=== PATIENT | male | born 1950 | race African-American/Black ===

== ENCOUNTER 2019-11-07 15:12 | Emergency (ER) | payer OTHER ==
--- OUTSIDE RECORDS SUMMARY | 2019-11-07 15:14 | XMS REPORT | Continuity of Care Document ---
:1950 Author Organization [facility] t Address [address] [place] [address] [place] [id number] Care Team Providers Name Role Phone Unavailable Unavailable Unavailable Problems This patient has no known problems. Allergies, Adverse Reactions, Alerts This patient has no known allergies or adverse reactions. Medications This patient has no known medications. Procedures This patient has no known procedures. Results This patient has no known results.
[2019-11-07 16:23] LABS: Absolute Lymphocytes (CBC) 1.8 K/uL (0.7-4.9); Basophils % 1.6 % (0-1.3); Hematocrit 38.1 % (39.6-49.0); Lymphocytes % 12.6 % (15.3-44.8); MPV 7.4 fL (7.6-11.3); RBC Red Blood Cell Count 4.39 M/uL (4.33-5.43)
--- NOTE | 2019-11-07 16:47 | RAD REPORT ---
EXAM DESCRIPTION: Cory Single View11/07/2019 4:25 pm CLINICAL HISTORY: cough COMPARISON: 2016 FINDINGS: Complete left atelectasis Right lung appears clear of acute infiltrate. Heart probably normal size IMPRESSION: Complete left atelectasis
[2019-11-07 16:59] LABS: Albumin 2.9 g/dL (3.4-5.0); Bilirubin Direct 0.3 mg/dL (0-0.2); Bilirubin Total 0.8 mg/dL (0.2-1.0); Potassium 4.1 mmol/L (3.5-5.1); Protein, Total 8.3 g/dL (6.4-8.2)
[2019-11-07 17:06] LABS: Blood Morphology Comment NOT SEEN (NOT SEEN); Platelet Estimate INCR; Platelets, Giant PRESENT; Urine White Blood Cell Casts OK
--- NOTE | 2019-11-07 18:05 | RAD REPORT ---
EXAM DESCRIPTION: CT - Chest Abdomen Pelvis W Cont - 11/07/2019 5:34 pm CLINICAL HISTORY: Chest and abdominal pain COMPARISON: CT abdomen 2017 TECHNIQUE: Computed axial tomography of the chest, abdomen and pelvis was obtained. 100 cc Isovue-30 0 was administered intravenously. Oral contrast was not requested. This limits evaluation of bowel. All CT scans are performed using dose optimization technique as appropriate and may include automated exposure control or mA/KV adjustment according to patient size. FINDINGS: 7.5 centimeter left parahilar mass obstructs the left mainstem bronchus resulting in atele ctasis. Small left pleural effusion. A small to moderate pericardial effusion. The right lung is hyperaerated. Mild mediastinal lymphadenopathy Multiple low-density hepatic lesions. The spleen, pancreas, adrenals unremarkable. Small left renal cyst. Moderate right hydronephrosis. Mild delay concentration contrast right kidney Right ureter is dilated to the level of the UVJ. Massive right inguinal hernia contains nondilated large and small bowel Murillo catheter is present within the prostate. Prostate gland is markedly enlarged. There is no evidence of diverticulitis. 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 It obstructs the left mainstem bronc hus resulting complete left atelectasis Small to moderate pericardial effusion Massive right inguinal hernia Right UVJ obstruction resulting in moderate right hydronephrosis perhaps secondary to a stricture Low-density hepatic mass. The majority if not all represent cysts Rectum is mildly distended with stool
--- NOTE | 2019-11-07 19:35 | ER ---
Nurse's Notes [facility] Name: Surya Penn Age: 69 yrs Sex: Male : 1950 Arrival Date: 11/07/2019 Time: 15:14 Bed 6 Private MD: Diagnosis: Inguinal hernia-massive right;Atelectasis-left lung hilar mass;Hemoptysis;Pericardial effusion (noninflammatory)-mild;Elevated white blood cell count Presentation: 11/06 15:16 Chief complaint: EMS states: pt from [facility], they state he has been coughing up blood x 2 tw2 weeks and have been trying to get him a CT scan, pt does have a contreras in place and pt is stating he has pain to the left lower abdomen. Coronavirus screen: Proceed with normal triage. Patient denies shortness of breath or difficulty breathing. Patient denies measured and/or subjective temperature greater than 100.4F prior to today's visit. Patient denies travel on a cruise ship or to a country the [facility] currently lists as an affected area. Ebola Screen: Patient denies travel to an Ebola-affected area in the 21 days before illness onset. Initial Sepsis Screen: Does the patient meet any 2 criteria? No. Patient's initial sepsis screen is negative. Does the patient have a suspected source of infection? No. Patient's initial sepsis screen is negative. Risk Assessment: Do you want to hurt yourself or someone else? Patient reports no desire to harm self or others. Onset of symptoms was November 07, 2019. Care prior to arrival: None. 15:16 Method Of Arrival: EMS: [facility] tw2 15:16 Acuity: MEGGAN 3 tw2 Triage Assessment: 15:22 General: Appears in no apparent distress. Behavior is calm, cooperative, appropriate tw2 for age. Pain: Complains of pain in left lower quadrant. EENT: No signs and/or symptoms were reported regarding the EENT system. Neuro: Level of Consciousness is awake, alert, obeys commands, Oriented to person, place. Cardiovascular: Heart tones S1 S2 Patient's skin is warm and dry. Respiratory: Airway is patent Respiratory effort is even, unlabored, Respiratory pattern is regular, symmetrical, Breath sounds are clear bilaterally. GI: Abdomen is Bowel sounds present X 4 quads. Reports lower abdominal pain. : Reports contreras in place upon arrival to er, cloudy yoly urine noted in collection bag. Derm: Skin is clammy, Skin temperature is warm. Musculoskeletal: Amputation of b/l BKA. Historical: - Allergies: 15:28 No Known Allergies; sv - Home Meds: 15:28 Aricept 10 mg Oral tab 1 tab nightly [Active]; aspirin 81 mg oral TbEC once daily sv [Active]; Colace 100 mg Oral cap 1 cap once daily [Active]; finasteride 5 mg oral tab 1 tab once daily [Active]; tamsulosin 0.4 mg Oral cp24 1 cap once daily [Active]; metoprolol tartrate 50 mg Oral tab 1 tab 2 times per day [Active]; Multiple Vitamins Oral tab daily [Active]; Namenda 10 mg oral tab 1 tab 2 times per day [Active]; omeprazole 20 mg Oral cpDR 1 cap once daily [Active]; Remeron 15 mg Oral tab 1 tab nightly [Active]; senna 8.6 mg oral cap once daily [Active]; Tessalon Perles 100 mg Oral cap 1 cap 3 times per day [Active]; - PMHx: 15:28 Anemia; Dementia; Depression; Hernia; Hypertension; PVD; Schizophrenia; UTI; BPH; ESBL; sv GERD; Acute kidney failure; Emmanuel BKA; Thrombocytopenia; Inguinal hernia; - PSHx: 15:28 BILATERAL BKA; sv - Immunization history:: Adult Immunizations. - Social history:: Smoking status: . Screenin:21 Abuse screen: Denies threats or abuse. Nutritional screening: No deficits noted. tw2 Tuberculosis screening: No symptoms or risk factors identified. Fall Risk None identified. Assessment: 15:31 Reassessment: see triage assessment. tw2 16:23 Reassessment: Patient appears in no apparent distress at this time. No changes from tw2 previously documented assessment. Patient and/or family updated on plan of care and expected duration. Pain level reassessed. 17:00 Reassessment: Hoa Amanda, ph#[phone] court appointed guardian. tw2 17:40 Reassessment: Patient appears in no apparent distress at this time. No changes from tw2 previously documented assessment. Patient and/or family updated on plan of care and expected duration. Pain level reassessed. pt back from CT at this time. 18:43 Reassessment: Patient appears in no apparent distress at this time. No changes from tw2 previously documented assessment. Patient and/or family updated on plan of care and expected duration. Pain level reassessed. 19:40 Reassessment:. rv 19:42 Reassessment: Patient and/or family updated on plan of care and expected duration. Pain rv level reassessed. Patient is alert, oriented x 3, equal unlabored respirations, skin warm/dry/pink. DR GONZALES TALKED TO THE PATIENT AND EXPLAINED THE TEST RESULTS AND PLAN OF CARE. PATIENT AGREED AND UNDERSTOOD. AWAITING ADMISSION ORDERS. 23:20 Reassessment: Patient and/or family updated on plan of care and expected duration. Pain rv level reassessed. Patient is alert, oriented x 3, equal unlabored respirations, skin warm/dry/pink. patient updated on the plan of care. report given to Doris Reveles RN of [facility]. Neuro: Level of Consciousness is awake, alert, obeys commands, Oriented to person, place, time, situation. Cardiovascular: Patient's skin is warm and dry. Respiratory: Airway is patent Respiratory effort is even, unlabored. 11/07 00:16 Reassessment: TALKED TO MS PETER OF [facility] AND UPDATED ON THE STATUS OF THE rv PATIENT. Vital Signs: 11/06 15:16 BP 147 / 78; Pulse 72; Resp 16; Temp 97.6(TE); Pulse Ox 95% on R/A; tw2 16:23 BP 139 / 86; Pulse 79; Resp 18; Pulse Ox 96% on R/A; tw2 17:40 BP 154 / 81; Pulse 77; Resp 18; Pulse Ox 95% on R/A; tw2 18:43 BP 141 / 79; Pulse 71; Resp 17; Pulse Ox 95% on R/A; tw2 19:41 BP 130 / 97; Pulse 73; Resp 18; Pulse Ox 95% on R/A; rv 20:00 BP 153 / 76; Pulse 71; Resp 16; Pulse Ox 96% on R/A; rv 20:30 BP 150 / 83; Pulse 70; Resp 16; Pulse Ox 96% on R/A; rv 21:03 BP 155 / 85; Pulse 73; Resp 17 S; Pulse Ox 95% on R/A; jd3 22:00 BP 143 / 101; Pulse 83; Resp 16; Pulse Ox 96% on R/A; rv 22:30 BP 124 / 90; Pulse 78; Resp 16; Pulse Ox 96% on R/A; rv 23:00 BP 139 / 80; Pulse 76; Resp 16; Pulse Ox 96% on R/A; rv 0603 00:12 BP 136 / 76; Pulse 78; Resp 17; Temp 98; Pulse Ox 96% on R/A; rv ED Course: 11/06 15:14 Patient arrived in ED. ss 15:16 Lizzy De Leon, RN is Primary Nurse. tw2 15:20 Triage completed. tw2 15:21 Arm band placed on. tw2 15:21 Patient has correct armband on for positive identification. Side rails up X2. Cardiac tw2 monitor on. Pulse ox on. NIBP on. Warm blanket given. 15:32 Harshad Gonzales MD is Attending Physician. [facility] 16:23 Inserted saline lock: 20 gauge in right antecubital area, using aseptic technique. tw2 Blood collected. 16:27 Chest Single View XRAY In Process Unspecified. EDMS 16:59 pts contact number (Wrjus) [phone]. bd 17:35 Chest Abdomen Pelvis W Cont In Process Unspecified. EDMS 19:02 Report given to Chris ZULETA and Mike ZULETA. sv 19:33 Hayley Osorio MD is Hospitalizing Provider. [facility] 22:02 Attending Physician role handed off by Harshad Gonzales MD [facility] 22:02 Tonio Boyd MD is Attending Physician. [facility] 11/07 00:13 No provider procedures requiring assistance completed. IV is patent, with fluids rv infusing freely, with good blood return, Patient transferred, IV remains in place. Administered Medications: 02 19:36 Drug: Rocephin - (cefTRIAXone) 1 grams Route: IVPB; Infused Over: 30 mins; Site: right rv antecubital; 20:34 Follow up: IV Status: Completed infusion rv 20:35 Follow up: Response: No adverse reaction rv 19:36 Drug: NS 0.9% 1000 ml Route: IV; Rate: 1000 ml; Site: right antecubital; rv 22:44 Follow up: IV Status: Completed infusion; IV Intake: 1000ml rv 22:20 Drug: Zosyn 3.375 grams Route: IVPB; Infused Over: 60 mins; Site: right antecubital; rv 23:20 Follow up: Response: No adverse reaction; IV Status: Completed infusion; IV Intake: rv 100ml Intake: 22:44 IV: 1000ml; Total: 1000ml. rv 23:20 IV: 100ml; Total: 1100ml. rv Outcome: 19:34 Decision to Hospitalize by Provider. [facility] 22:09 ER care complete, transfer ordered by . shahana 11/07 00:13 Transferred by ground EMS to [facility], Transfer form completed. rv X-rays sent w/ patient. Condition: good Instructed on the need for transfer, Demonstrated understanding of instructions. 00:13 Patient left the ED. rv Signatures: Dispatcher [employer] EDMS Irina Saunders Stephanie, RN Tonio Amador MD MD cha Smirch, Shelby, RN RN ss Wise, Tara, RN RN tw2 Chris Reagan RN RN jd3 Vicente, Ronaldo, RN RN rv Holmes, Maurice, MD MD [facility] Corrections: (The following items were deleted from the chart) 11/06 17:40 17:39 Reassessment: Patient appears in no apparent distress at this time. No changes tw2 from previously documented assessment. Patient and/or family updated on plan of care and expected duration. Pain level reassessed. tw2
--- NOTE | 2019-11-07 19:35 | EDPHYS ---
Physician Documentation [facility] Name: Surya Penn Age: 69 yrs Sex: Male : 1950 Arrival Date: 11/07/2019 Time: 15:14 Bed 6 Private MD: GONZALES Physician Tonio Boyd HPI: 11/06 16:44 This 69 yrs old Black Male presents to ER via EMS with complaints of Abnormal Lab mh7 Results. 16:45 The patient presents with abdominal pain in the lower abdomen. Onset: The mh7 symptoms/episode began/occurred 1 week(s) ago. The symptoms do not radiate. Associated signs and symptoms: Pertinent negatives: nausea and vomiting, anorexia, blood in stools, chest pain, constipation, diarrhea, dysuria, fever, headache, hematuria, nausea, palpitations, shortness of breath, testicular pain, vomiting, vomiting blood. The symptoms are described as intermittent, vague, waxing/waning. Modifying factors: The symptoms are alleviated by nothing, the symptoms are aggravated by nothing. Severity of pain: At its worst the pain was moderate 3 day(s) ago, in the emergency department the pain has improved mildly. Patient reports having left lower abdominal pain for about a week. He also reports cough with some blood for 2-3 weeks. He denies any fever, chest pain, SOB, nausea, vomiting, diarrhea, or dysuria.. Historical: - Allergies: 15:28 No Known Allergies; sv - Home Meds: 15:28 Aricept 10 mg Oral tab 1 tab nightly [Active]; aspirin 81 mg oral TbEC once daily sv [Active]; Colace 100 mg Oral cap 1 cap once daily [Active]; finasteride 5 mg oral tab 1 tab once daily [Active]; tamsulosin 0.4 mg Oral cp24 1 cap once daily [Active]; metoprolol tartrate 50 mg Oral tab 1 tab 2 times per day [Active]; Multiple Vitamins Oral tab daily [Active]; Namenda 10 mg oral tab 1 tab 2 times per day [Active]; omeprazole 20 mg Oral cpDR 1 cap once daily [Active]; Remeron 15 mg Oral tab 1 tab nightly [Active]; senna 8.6 mg oral cap once daily [Active]; Tessalon Perles 100 mg Oral cap 1 cap 3 times per day [Active]; - PMHx: 15:28 Anemia; Dementia; Depression; Hernia; Hypertension; PVD; Schizophrenia; UTI; BPH; ESBL; sv GERD; Acute kidney failure; Emmanuel BKA; Thrombocytopenia; Inguinal hernia; - PSHx: 15:28 BILATERAL BKA; sv - Immunization history:: Adult Immunizations. - Social history:: Smoking status: . ROS: 16:45 Constitutional: Negative for fever, chills, and weight loss, Eyes: Negative for injury, mh7 pain, redness, and discharge, ENT: Negative for injury, pain, and discharge, Neck: Negative for injury, pain, and swelling, Cardiovascular: Negative for chest pain, palpitations, and edema, Back: Negative for injury and pain, : Negative for injury, bleeding, discharge, and swelling, MS/Extremity: Negative for injury and deformity, Skin: Negative for injury, rash, and discoloration, Neuro: Negative for headache, weakness, numbness, tingling, and seizure, Psych: Negative for depression, anxiety, suicide ideation, homicidal ideation, and hallucinations, Allergy/Immunology: Negative for hives, rash, and allergies, Endocrine: Negative for neck swelling, polydipsia, polyuria, polyphagia, and marked weight changes, Hematologic/Lymphatic: Negative for swollen nodes, abnormal bleeding, and unusual bruising. Exam: 16:45 Constitutional: This is a well developed, well nourished patient who is awake, alert, mh7 and in no acute distress. Head/Face: Normocephalic, atraumatic. Eyes: Pupils equal round and reactive to light, extra-ocular motions intact. Lids and lashes normal. Conjunctiva and sclera are non-icteric and not injected. Cornea within normal limits. Periorbital areas with no swelling, redness, or edema. Neck: Trachea midline, no thyromegaly or masses palpated, and no cervical lymphadenopathy. Supple, full range of motion without nuchal rigidity, or vertebral point tenderness. No Meningismus. Chest/axilla: Normal chest wall appearance and motion. Nontender with no deformity. No lesions are appreciated. Cardiovascular: Regular rate and rhythm with a normal S1 and S2. No gallops, murmurs, or rubs. Normal PMI, no JVD. No pulse deficits. 16:45 Back: No spinal tenderness. No costovertebral tenderness. Full range of motion. Skin: Warm, dry with normal turgor. Normal color with no rashes, no lesions, and no evidence of cellulitis. 16:45 Neuro: Awake and alert, GCS 15, oriented to person, place, time, and situation. Cranial nerves II-XII grossly intact. Motor strength 5/5 in all extremities. Sensory grossly intact. Cerebellar exam normal. Normal gait. Psych: Awake, alert, with orientation to person, place and time. Behavior, mood, and affect are within normal limits. 16:45 Abdomen/GI: Inspection: abdomen appears normal, Bowel sounds: normal, in all quadrants, Palpation: moderate abdominal tenderness, in the left lower quadrant, Rectal exam: the exam is deferred, because of patient request, Indicators: McBurney's point is not tender, Diaz's sign is negative, Rovsing's sign is negative, Obturator sign is negative, Psoas sign is negative, Liver: no appreciated palpable abnormalities, Hernia: not appreciated. 16:45 Musculoskeletal/extremity: Extremities: bilateral AKA. Vital Signs: 15:16 BP 147 / 78; Pulse 72; Resp 16; Temp 97.6(TE); Pulse Ox 95% on R/A; tw2 16:23 BP 139 / 86; Pulse 79; Resp 18; Pulse Ox 96% on R/A; tw2 17:40 BP 154 / 81; Pulse 77; Resp 18; Pulse Ox 95% on R/A; tw2 18:43 BP 141 / 79; Pulse 71; Resp 17; Pulse Ox 95% on R/A; tw2 19:41 BP 130 / 97; Pulse 73; Resp 18; Pulse Ox 95% on R/A; rv 20:00 BP 153 / 76; Pulse 71; Resp 16; Pulse Ox 96% on R/A; rv 20:30 BP 150 / 83; Pulse 70; Resp 16; Pulse Ox 96% on R/A; rv 21:03 BP 155 / 85; Pulse 73; Resp 17 S; Pulse Ox 95% on R/A; jd3 22:00 BP 143 / 101; Pulse 83; Resp 16; Pulse Ox 96% on R/A; rv 22:30 BP 124 / 90; Pulse 78; Resp 16; Pulse Ox 96% on R/A; rv 23:00 BP 139 / 80; Pulse 76; Resp 16; Pulse Ox 96% on R/A; rv 11/07 00:12 BP 136 / 76; Pulse 78; Resp 17; Temp 98; Pulse Ox 96% on R/A; rv MDM: 11/06 16:01 Patient medically screened. [facility] 19:31 Differential diagnosis: bowel obstruction, diverticulitis, non-specific abd pain, mh7 Pyelonephritis, urinary tract infection, hemoptysis, lung mass/malignancy, pneumonia. Data reviewed: vital signs, nurses notes, fdc records, old medical records, lab test result(s), CBC, electrolytes, urinalysis, radiologic studies, CT scan, plain films. Data interpreted: monitor car operator: rate is 71 beats/min, rhythm is normal sinus rhythm, regular, Interpretation: normal rate, normal rhythm, Pulse oximetry: on room air is 95 %. Interpretation: normal. Counseling: I had a detailed discussion with the patient and/or guardian regarding: the historical points, exam findings, and any diagnostic results supporting the discharge/admit diagnosis, the presence of at least one elevated blood pressure reading (>120/80) during this emergency department visit, lab results, radiology results, the need for further work-up and treatment in the hospital. 11/06 15:55 Order name: Basic Metabolic Panel; Complete Time: 17:11 11/06 15:55 Order name: CBC with Diff; Complete Time: 17:11 11/06 15:55 Order name: Hepatic Function; Complete Time: 17:11 11/06 15:55 Order name: Lipase; Complete Time: 17:11 11/06 15:55 Order name: Chest Single View XRAY; Complete Time: 17:11 11/06 17:06 Order name: CBC Smear Scan; Complete Time: 17:11 EDAK 11/06 15:55 Order name: IV Saline Lock; Complete Time: 16:34 11/06 15:55 Order name: Labs collected and sent; Complete Time: 16:34 11/06 17:19 Order name: Chest Abdomen Pelvis W Cont; Complete Time: 18:51 EDAK 11/06 19:16 Order name: Urine Dipstick-Ancillary (obtain specimen); Complete Time: 19:44 [facility] 11/06 22:05 Order name: Murillo: replace; Complete Time: 22:15 shahana Administered Medications: 19:36 Drug: Rocephin - (cefTRIAXone) 1 grams Route: IVPB; Infused Over: 30 mins; Site: right rv antecubital; 20:34 Follow up: IV Status: Completed infusion rv 20:35 Follow up: Response: No adverse reaction rv 19:36 Drug: NS 0.9% 1000 ml Route: IV; Rate: 1000 ml; Site: right antecubital; rv 22:44 Follow up: IV Status: Completed infusion; IV Intake: 1000ml rv 22:20 Drug: Zosyn 3.375 grams Route: IVPB; Infused Over: 60 mins; Site: right antecubital; rv 23:20 Follow up: Response: No adverse reaction; IV Status: Completed infusion; IV Intake: rv 100ml Disposition: 11/07/19 22:[address] [facility]. Diagnosis are Inguinal hernia - massive right, Atelectasis - left lung hilar mass, Hemoptysis, Pericardial effusion (noninflammatory) - mild, Elevated white blood cell count. - Reason for transfer: Higher level of care. - Accepting physician is to [facility]... surgery, pulmonology and urology. - Condition is Fair. - Problem is new. - Symptoms have improved. Signatures: Dispatcher [employer] EDMS Alayna Zabala, Tonio Amador RN, MD MD cha Wise, Tara, RN RN 2 Mike Fernandez RN RN Harshad Gonzales MD MD 7 Corrections: (The following items were deleted from the chart) 17:19 17:13 Abdomen Pelvis W Con+CT.RAD.BRZ ordered. EDAK EDMS 17:19 17:16 Thorax W/ Con+CT.RAD.BRZ ordered. EDAK EDMS 21:59 19:34 Hospitalization Ordered by Hayley Osorio MD for Inpatient Admission. Preliminary tl1 diagnosis is Lung Mass; Urinary tract infection, site not specified; Dehydration. Bed requested for Telemetry/MedSurg (Inpatient). Status is Inpatient Admission. Condition is Stable. Problem is new. Symptoms are unchanged. mh7 11/07 00:13 11/06 22:09 11/07/2019 22:[address] [facility]. rv Diagnosis is Inguinal hernia - massive right; Atelectasis - left lung hilar mass; Hemoptysis; Pericardial effusion (noninflammatory) - mild; Elevated white blood cell count. Reason for transfer: Higher level of care. Accepting physician is to [facility]... surgery, pulmonology and urology. Condition is Fair. Problem is new. Symptoms have improved. shahana
[2019-11-07] MEDS ORDERED: CEFTRIAXONE/SWI 1gm 1 GM/10 ML SYR ONE (19:41)
[2019-11-07] MEDS ORDERED: NA CHLORIDE 0.9% 1,000 ML ONE (19:41)
[2019-11-07] MEDS ORDERED: PIPER/TAZO/NS 3.375gm 3.375 GM/100 ML BAG ONE (22:26)
[2019-11-08 00:30] VITALS: O2SAT 96
[2019-11-08 00:34] VITALS: BP 136/76; TEMP 98
--- NOTE | 2019-11-08 09:58 | P.CNS ---
Date of Consult: 11/07/19 Reason for Consult: Patient with lung mass Requesting Physician: Harshad Gonzales Chief Complaint: Hemoptysis History of Present Illness: Patient is a 61-year-old gentlemen who came to the hospital with hemoptysis. Patient also has numerous other medical issues. Patient had a large hernia with hydronephrosis. The surgical intervention for this as well. As a large lung mass that may need biopsy. Patient will need to be transferred to a tertiary care facility. Allergies No Known Allergies Allergy (Unverified 09/16/16 15:09) Home Medications: Aspirin [Aspirin EC 325 MG] 325 mg PO DAILY 01/31/16 Multivitamin [Daily Tony] 1 tab PO DAILY 01/31/16 Risperidone 1 mg PO BEDTIME 01/31/16 Metoprolol Tartrate 1 tab PO BID 09/09/16 Amoxicillin Trihydrate [Amoxil] 500 mg PO BID #28 capsule 09/16/16 Ferrous Sulfate [Ferrous Sulfate*] 325 mg PO BID #60 tab 09/16/16 Finasteride [Proscar*] 5 mg PO DAILY #30 tab 09/16/16 Pantoprazole [Protonix Tab*] 40 mg PO DAILYAC #30 tab 09/16/16 Tamsulosin [Flomax*] 0.4 mg PO BID #30 cap 09/16/16 - Past Medical/Surgical History Diabetic: No -: Depression -: Anemia -: Paranoid schizophrenia -: Hypertension -: Peripheral vascular disease -: Previous bilateral amputations -: Inguinal hernia -: Chronic Murillo catheter -: BPH -: Bilateral above knee amputations Psychosocial/ Personal History: Patient is currently at the [facility]. He is single. He has no children. - Family History Father Medical History: Kidney disease Mother Medical History: Hypertension Brother Medical History: Kidney disease - Social History Smoking Status: Former smoker Alcohol use: No CD- Drugs: No Caffeine use: Yes Review of Systems 10-point ROS is otherwise unremarkable Physical Examination Temp Pulse Resp BP Pulse Ox 98 F 78 17 136/76 11/08/19 00:12 11/08/19 00:12 11/08/19 00:12 11/08/19 00:12 General: Alert, In no apparent distress, Oriented x3 HEENT: Atraumatic, Normocephalic Neck: Supple, 2+ carotid pulse no bruit, JVD not distended, No Thyromegaly Respiratory: Diminished, Expiratory wheezes Cardiovascular: Regular rate/rhythm, Normal S1 S2, No murmurs Gastrointestinal: Normal bowel sounds, Soft and benign, Non-distended, No tenderness Musculoskeletal: No clubbing, No swelling, No contractures, No erythema Integumentary: No rashes Neurological: Normal gait, Normal speech, Normal strength at 5/5 x4 extr, Normal tone, Sensation intact, Cranial nerves 3-12 intact Laboratory Data (last 24 hrs) 11/07/19 16:15: WBC 14.6 H, Hgb 12.0 L, Hct 38.1 L, Plt Count 1176 H* 11/07/19 16:15: Sodium 143, Potassium 4.1, BUN 11, Creatinine 1.03, Glucose 90, Total Bilirubin 0.8, AST 15, ALT 12, Alkaline Phosphatase 94, Lipase 62 L - Problems (1) Lung mass Status: Acute (2) Hemoptysis Status: Acute (3) Hydronephrosis Status: Acute Qualifiers: Hydronephrosis type: other Qualified Code(s): N13.39 - Other hydronephrosis (4) Urinary retention Onset Date: 01/31/16 Status: Acute (5) Inguinal hernia Onset Date: 01/31/16 Status: Chronic Qualifiers: Obstruction and gangrene presence: without obstruction or gangrene Laterality: unilateral Recurrence: recurrent Qualified Code(s): K40.91 - Unilateral inguinal hernia, without obstruction or gangrene, recurrent (6) Paranoid schizophrenia Onset Date: 09/10/16 Status: Chronic Conclusions/ Impression: Patient has numerous medical issues going on. I recommend transfer to a tertiary care facility. Critical Care: No Time Spent Managing Pts care (In Minutes): 40
== END 2019-11-08 00:13 | disposition short-term general hospital (02) ==
LOC: ER 15:12
DX: K40.90 Unilateral inguinal hernia, without obstruction or gangrene, not specified as recurrent (principal); R04.2 Hemoptysis; J98.11 Atelectasis; I31.3 Pericardial effusion (noninflammatory); D72.829 Elevated white blood cell count, unspecified; I10 Essential (primary) hypertension; N17.9 Acute kidney failure, unspecified; Z79.82 Long term (current) use of aspirin
CPT/HCPCS: 96365; 96367; 96361; 85025; 80048; 36415; 80076; 83690; 71260; 74177; 71045; 99285; Q9967; J2543; J0696; J7030

== ENCOUNTER 2020-04-16 09:14 | Emergency (ER) | payer OTHER ==
[2020-04-16] MEDS ORDERED: NA CHLORIDE 0.9% 1,000 ML ONE (09:38)
--- OUTSIDE RECORDS SUMMARY | 2020-04-16 09:44 | XMS REPORT | Clinical Summary ---
:1950 Author Organization [facility] Address [address] [place] [address] Care Team Providers Name Role Phone Pcp, No Primary Care Provider Unavailable Allergies No Known Allergies Medications Medication Sig Dispensed Refills Start Date End Date Status docusate sodium Take 100 mg by 0 Active (COLACE) 100 MG mouth daily. capsule metoprolol tartrate Take 50 mg by 0 03/02/2016 Active (LOPRESSOR) 50 MG mouth 2 (two) tablet times daily. tamsulosin (FLOMAX) Take 0.4 mg by 0 Active 0.4 mg Cap 24 hr mouth daily. capsule donepeziL (ARICEPT) 10 Take 10 mg by 0 Active MG tablet mouth nightly. aspirin 81 MG EC Take 81 mg by 0 Active tablet mouth daily. finasteride (PROSCAR) Take 5 mg by 0 Active 5 mg tablet mouth daily. multivitamin per Take 1 tablet 0 Active tablet by mouth daily. memantine (NAMENDA) 10 Take 10 mg by 0 Active MG tablet mouth 2 (two) times daily. omeprazole (PRILOSEC) Take 20 mg by 0 Active 20 MG capsule mouth daily. mirtazapine (REMERON) Take 15 mg by 0 Active 15 MG tablet mouth nightly. senna (SENOKOT) 8.6 mg Take 1 tablet 0 Active tablet by mouth daily. benzonatate (TESSALON) Take 100 mg by 0 Active 100 MG capsule mouth 3 (three) times daily as needed for Cough. cefpodoxime (VANTIN) Take 1 tablet 20 tablet 0 11/11/201911/05 200 MG tablet (200 mg total) by mouth 2 (two) times daily for 10 days. Active Problems Problem Noted Date Lung mass 11/08/2019 Cough with hemoptysis 11/08/2019 Obstructive uropathy 11/08/2019 Encounters Date Type Specialty Care Team Description 11/10/2019 Anesthesia Event Jerry Vee MD Rembalski, Kindra Bhagat, HUMANITIES AND LANGUAGES PROFESSOR 11/10/2019 Surgery Rene Shields, BRONCHOSCOP Y,ENDOBRO MD DAVIS ULTRASOU ND (EBUS) TRANSTRA CH/ TRANSBRONCH TRACIE PLING 11/10/2019 Orders Only General Internal Medicine 11/08/2019 - Hospital Encounter General Internal Changechery, Lilia Cleopatra lucia with hemoptysis; 11/11/2019 Kaleb Causey MD Lung mass; Damari Phoenix, Chelsyuctmarta ve uropathy; Inguinal hernia without obstruction or g angrene, recurrence not specified, unspecified laterality; Nnacy Pascual Essential hypertension; MD Josefina Paranoid schi zophrenia (HCC) 11/08/2019 Travel after 04/16/2019 Social History Tobacco Use Types Packs/Day Years Used Date Former Smoker Smokeless Tobacco: Never Used Sex Assigned at Date Recorded Not on file Last Filed Vital Signs Vital Sign Reading Time Taken Comments Blood Pressure 101/66 11/11/2019 3:26 PM CDT Pulse 72 11/11/2019 3:26 PM CDT Temperature 36.8 C (98.2 F) 11/11/2019 3:26 PM CDT Respiratory Rate 22 11/11/2019 3:26 PM CDT Oxygen Saturation 99% 11/11/2019 3:26 PM CDT Inhaled Oxygen Concentration 21% 11/10/2019 12:20 PM CDT Weight - - Height 172.7 cm (5' 8") 11/08/2019 1:16 AM CDT Body Mass Index - - Plan of Treatment Health Maintenance Due Date Last Done Comments COLON CANCER SCREENING COLONOSCOPY 1950 PNEUMOCOCCAL 65+ YRS (1 of 1 - [id number]) 2016 MEDICARE ANNUAL WELLNESS (YEAR 2 or FIRST YEAR if no 10/06/2017 IPPE) INFLUENZA VACCINE (#1) 2020 Procedures Procedure Name Priority Date/Time Associated Diagnosis Comme nts REPORT OF PROCEDURE - 12/13/2019 ENDOSCOPY URL 10:17 AM CDT REPORT OF PROCEDURE - 11/14/2019 ENDOSCOPY SCAN 11:50 AM CDT TRANSFUSION SERVICE 11/11/2019 REPORT - SCAN 5:51 PM CDT TISSUE EXAM AP Routine 11/10/2019 Results for 7:26 PM CDT this procedure are in the results section. EBUS FNA REQUEST Routine 11/10/2019 Results for 6:58 PM CDT this procedure are in the results section. FINE NEEDLE ASPIRATE BY AP Routine 11/10/2019 Resu lts for EBUS 6:58 PM CDT this procedure are in the results section. EBUS FNA REQUEST Routine 11/10/2019 Results for 6:55 PM CDT this procedure are in the results section. FINE NEEDLE ASPIRATE BY AP Routine 11/10/2019 Resu lts for EBUS 6:55 PM CDT this procedure are in the results section. EBUS FNA REQUEST Routine 11/10/2019 Results for 6:50 PM CDT this procedure are in the results section. FINE NEEDLE ASPIRATE BY AP Routine 11/10/2019 Resu lts for EBUS 6:50 PM CDT this procedure are in the results section. EBUS FNA REQUEST Routine 11/10/2019 Results for 6:46 PM CDT this procedure are in the results section. FINE NEEDLE ASPIRATE BY AP Routine 11/10/2019 Resu lts for EBUS 6:46 PM CDT this procedure are in the results section. BRONCHOSCOPY,ASPIRATION 11/10/2019 Mediastinal TRACHEOBRONCHIAL TREE 6:07 PM CDT lymphadenopathy Special Needs (C-ARM AND REQ TF) BRONCHOSCOPY,DILATATION 11/10/2019 6:07 PM CDT Medias tinal lymphadenopathy Special Needs (C-ARM AND REQ TF) BRONCHOSCOPY,CRYOTHERAPY TREATMENT 11/10/2019 6:07 PM Mediastinal FOR STENOSIS CDT lymphadenopathy Special Needs (C-ARM AND REQ TF) BRONCHOSCOPY,ENDOBRONCHIAL 11/10/2019 6:07 PM Mediast inal ULTRASOUND (EBUS) TRANSTRACH/ CDT lymphadenop athy TRANSBRONCH SAMPLING Special Needs (C-ARM AND REQ TF) SARS-COV2/RT-PCR ([facility] & REF STAT 11/10/2019 4:13 PM CDT Results for this LABS) procedure are i n the results section . ECG 12-LEAD Routine 11/10/2019 1:43 PM CDT Procedure Note - Interface, External Ris In - 11/10/2019 2:10 PM CDT Ventricular Rate 64 BPM Atrial Rate 64 BPM P-R Interval 172 ms QRS Duration 132 ms Q-T Interval 430 ms QTC Calculation(Bazett) 443 ms P [place] 67 degrees R [place] -53 degrees T [place] -11 degrees Sinus rhythm with marked sin us arrhythmia Left axis deviation Left bundle branch block Abnormal ECG No previous ECGs available ECG 12-LEAD STAT 11/10/2019 1:43 PM CDT Resu lts for this procedure are i n the results section . ABORH, MANUAL STAT 11/10/2019 8:18 AM CDT Res ults for this procedure are i n the results section . CBC W/PLT COUNT & AUTO STAT 11/10/2019 5:11 AM CDT Results for this DIFFERENTIAL procedure are i n the results section . CBC W/PLT COUNT & AUTO Routine 11/10/2019 5:11 AM CDT Results for this DIFFERENTIAL procedure are i n the results section . TYPE AND SCREEN, AUTOMATED STAT 11/10/2019 5:11 AM CDT Results for this procedure are i n the results section . APTT STAT 11/10/2019 5:11 AM CDT Resu lts for this procedure are i n the results section . PROTHROMBIN TIME/INR STAT 11/10/2019 5:11 AM CDT Results for this procedure are i n the results section . CBC W/PLT COUNT & AUTO STAT 11/10/2019 5:11 AM CDT Results for this DIFFERENTIAL procedure are i n the results section . COMPREHENSIVE METABOLIC STAT 11/10/2019 5:11 AM CDT Results for this PANEL procedure are i n the results section . PROTHROMBIN TIME/INR Routine 11/10/2019 5:11 AM CDT Results for this procedure are i n the results section . CBC W/PLT COUNT & AUTO Routine 11/10/2019 5:11 AM CDT Results for this DIFFERENTIAL procedure are i n the results section . PHOSPHORUS Routine 11/10/2019 5:11 AM CDT Resu lts for this procedure are i n the results section . MAGNESIUM Routine 11/10/2019 5:11 AM CDT Resu lts for this procedure are i n the results section . HEPATIC FUNCTION PANEL Routine 11/10/2019 5:11 AM CDT Results for this procedure are i n the results section . BASIC METABOLIC PANEL (7) Routine 11/10/2019 5:11 AM CDT Results for this procedure are i n the results section . CBC W/PLT COUNT & AUTO Routine 11/09/2019 4:21 AM CDT Results for this DIFFERENTIAL procedure are i n the results section . PROTHROMBIN TIME/INR Routine 11/09/2019 4:21 AM CDT Results for this procedure are i n the results section . CBC W/PLT COUNT & AUTO Routine 11/09/2019 4:21 AM CDT Results for this DIFFERENTIAL procedure are i n the results section . PHOSPHORUS Routine 11/09/2019 4:21 AM CDT Resu lts for this procedure are i n the results section . MAGNESIUM Routine 11/09/2019 4:21 AM CDT Resu lts for this procedure are i n the results section . HEPATIC FUNCTION PANEL Routine 11/09/2019 4:21 AM CDT Results for this procedure are i n the results section . BASIC METABOLIC PANEL (7) Routine 11/09/2019 4:21 AM CDT Results for this procedure are i n the results section . US RENAL COMPLETE Routine 11/08/2019 7:25 AM CDT Results for this procedure are i n the results section . CBC W/PLT COUNT & AUTO Routine 11/08/2019 5:44 AM CDT Results for this DIFFERENTIAL procedure are i n the results section . PROTHROMBIN TIME/INR Routine 11/08/2019 5:44 AM CDT Results for this procedure are i n the results section . CBC W/PLT COUNT & AUTO Routine 11/08/2019 5:44 AM CDT Results for this DIFFERENTIAL procedure are i n the results section . PHOSPHORUS Routine 11/08/2019 5:44 AM CDT Resu lts for this procedure are i n the results section . MAGNESIUM Routine 11/08/2019 5:44 AM CDT Resu lts for this procedure are i n the results section . HEPATIC FUNCTION PANEL Routine 11/08/2019 5:44 AM CDT Results for this procedure are i n the results section . BASIC METABOLIC PANEL (7) Routine 11/08/2019 5:44 AM CDT Results for this procedure are i n the results section . URINALYSIS W/ REFLEX URINE Routine 11/08/2019 4:50 AM CDT Results for this CULTURE procedure are i n the results section . URINE CULTURE Routine 11/08/2019 4:50 AM CDT Res ults for this procedure are i n the results section . after 04/16/2019 Results REPORT OF PROCEDURE - ENDOSCOPY URL (12/13/2019 10:17 AM CDT) Narrative Performed At This result has an attachment that is no t available. EKG-SCANNED (11/14/2019 11:50 AM CDT) Narrative Performed At This result has an attachment that is no t available. TRANSFUSION SERVICE REPORT - SCAN (11/11/2019 5:51 PM CDT) Narrative Performed At This result has an attachment that is no t available. Tissue Exam (11/10/2019 7:26 PM CDT) Case Report Surgical Pathology Report Case: [id number] [facility] Authorizing Provider: Rene Villafana MD Collected: 11/10/2019 07:26 PM [facility] Ordering Location: [facility] PERIOPERATIVE Received: 11/13/2019 07:43 AM MEDICAL CENTER SERVICES Pathologist: Janette Mao MD Specimen: Bronchus, Lef t, EBBX, Reflex Genetic Markers DIAGNOSIS [facility] Electronically A. BRONCHUS, LEFT, ENDOBRONCHIAL BIOPSY: [facility] signed by Daylin, - SQUAMOUS CELL CARCINOMA, MODERATELY DIFFERENTIAT ED. [facility] MD Janette on Signing Pathologist Direct Phone Line: [phone] 11/14/2019 at 9:47 AM CPT Code(s) 92571 [facility] CLINICAL HISTORY Perihilar mass [facility] SPECIMEN SOURCE Bronchus, left [facility] GROSS DESCRIPTION A. Received in formalin labe lled with the patients name, medical record number and "bronchus, left" is a 1.1 x 0.6 x 0.2 cm irregular ayala-pink soft tissue fragment which is submitted in toto in A1. [facility] DAVON Lawrence PA (ASCP) MEDICAL [address] MICROSCOPIC Performed. [facility] SPECIAL STUDIES The interpretation of this c ase included the use of immunohistochemistry or special stains. [facility] Control Slides Examined: In -house known positive controls were evaluated along with the test tissue. These control slides run alongside of the patients sample show appropriate staining. [facility] javad and negative controls when available are evaluated Immunohistochemistry technic al testing was performed at [facility], Pathology Laboratory where it was developed and its performance characteristics were determined. It has not be en cleared or approved by [facility] U.S. Food and Drug Administration. The FDA has determined that such clearance or approval is not necessary. The test is used for clinical purposes. It should not be regarde d as investigational or for research. This laboratory is certified under the Clinical Laboratory Improvement Amendments of 1988 (CLIA-88) as qualified to perform high complexity clinical laboratory testing. Gross assessment [facility] was performed at [facility] Pathology, [address] [place] [id number], Technical [facility] component was [facility] performed at Pathology, [address] [place] [id number], [facility] component was [facility] performed at [facility], [address] [place] [id number], Specimen Tissue - Left main bronchus structure (b beverley structure) Performing Organization Address [facility]/[place] [facility] Centercode Phone Number [address] [phone] [place] EBUS FNA REQUEST (11/10/2019 6:58 PM CDT)Only the most recent of4 resultswithin the time period is included. Pathologist Sig nature Cytology See Separate Report [facility] Specimen EBUS Fine Needle Aspirate - Lymph Node, Lower Paratracheal, Left, Station 4L Performing Organization Address [facility] [place] [facility] Centercoct Phone Number [address] [address] [place] Fine Needle Aspiration by EBUS (11/10/2019 6:58 PM CDT)Only the most recent of4 resultswithin the time period is included. Case Report Medical Cytology Report Case: [id number] [facility] Authorizing Provider: Rene Villafana MD Collected: 11/10/2019 06:58 PM [facility] Ordering Location: [address] Received: 11/13/2019 09:26 AM MEDICAL CENTER Service Pathologist: Amy Pineda MD Specimen: Lymph Node, L ower Paratracheal, Left, Station 4L DIAGNOSIS LYMPH NODE, LOWER PARATRACHE AL, LEFT, STATION 4L EBUS FNA BY CLINICIAN (CYTOSPINS AND CELL BLOCK OF ASPIRATE): [facility] Electronically - SATISFACTORY FOR EVALUATION [facility] signed by Miriam, - NEGATIVE FOR METASTATIC MALIGNANT CELLS [facility] MD Amy on - EVIDENCE OF LYMPH NODE SAMPLING (POLYMORPHOUS LYM PHOID TISSUE PRESENT) 11/14/2019 at 11:48 Signing Pathologist Direct Phone Line: [phone] COMMENT Please see cases [id number] [facility] and [id number] through [address] [facility] CPT Code(s) 95627, [address]458 [facility] CLINICAL DATA Mediastinal [facility] lymphadenopathy [facility] SPECIMEN SOURCE LYMPH NODE, LOWER [facility] PARATRACHEAL, LEFT, [facility] STATION 4L EBUS FNA [facility] GROSS DESCRIPTION 34 mls in cytorich red; [address] cytospins, cell bloc k [facility] Collected: [facility] Received: [address] [place] [address] MICROSCOPIC Performed. [facility] SPECIAL [facility] The interpretation of this c ase included the use of immunohistochemistry or special stains. [facility] Control Slides Examined: In -house known positive controls were evaluated along with the test tissue. These control slides run alongside of the patients sample show appropriate staining. [facility] javad and negative controls when available are evaluated Immunohistochemistry technic al testing was performed at [facility], Pathology Laboratory where it was developed and its performance characteristics were determined. It has not be en cleared or approved by [facility] U.S. Food and Drug Administration. The FDA has determined that such clearance or approval is not necessary. The test is used for clinical purposes. It should not be regarde d as investigational or for research. This laboratory is certified under the Clinical Laboratory Improvement Amendments of 1988 (CLIA-88) as qualified to perform high complexity clinical laboratory testing. Gross assessment [facility] was performed at [place], Department of [facility] Pathology, [address] [place] [address], [place] [address], Technical [facility] component was [facility] B[facility] performed at Pathology, [address] [place] [address], [place] [address], [facility] component was [facility] performed at Pathology, [address] [place] [id number], Specimen EBUS Fine Needle Aspirate - Lymph Node, Lower Paratracheal, Left, Station 4L Narrative Performed At This result has an attachment that is no t available. Performing Organization Address City/State/Zipcode Phone Number [address] [phone] CENTER SARS-CoV2/RT-PCR (Symptomatic ONLY) (11/10/2019 4:13 PM CDT) SARS-COV2/RT-PCR Not Detected Not Detected, [facility] Negative [facility] SARS-COV-[address] [facility] PERFORMING LAB [facility] Specimen Other - Nasopharyngeal wall structure (b beverley structure) Narrative Performed At Negative results do not preclude SARS-CoV-2 [facility] infection and should not be used as the sole basis for patient management decisions. Negative results must be combined with clinical observations, patient history, and epidemiological information. A false negative result may occur if a specimen is improperly collected, transported or handled. The limit of detection for this assay is 250 copies/mL. This SARS CoV-2 test is a rapid, real-time RT-PCR test intended for the qualitative detection of nucleic acid from SARS-CoV-2 in a nasopharyngeal swab specimen collected from individuals suspected of COVID-19 by their healthcare provider. This test has not been Food and Drug Administration (FDA) cleared or approved and has been authorized by FDA under an Emergency Use Authorization (EUA). This EUA will be effective until the declaration that circumstances exist justifying the authorization of the emergency use of in vitro diagnostic tests for detection and/or diagnosis of COVID-19 is terminated under Section 564(b)(2) of the Act or the EUA is revoked under Section 564(g) of the Act. Fact Sheet for Healthcare Providers: https://www.[employer]/Documents/Xpert%20Xpre ss%20SARS%20CoV-2/Fact%20Sheets/302-3802%20SAR S-COV-2%20HEALTHCARE%20PROVIDERS%20FACT%20SHEE T.pdf Fact Sheet for Healthcare Patients: https://www.[employer]/Documents/Xpert%20Xpre ss%20SARS%20CoV-2/Fact%20Sheets/302-3801%20SAR S-COV-2%20PATIENT%20FACT%20SHEET.pdf Performing Laboratory: [address] [address] Performing Organization Address [facility]/[place] [facility] [place] [address] CENTER ECG 12 lead (11/10/2019 1:43 PM CDT) Specimen Narrative Performed At Ventricular Rate 64 BPM GE MUSE Atrial Rate 64 BPM P-R Interval 172 ms QRS Duration 132 ms Q-T Interval 430 ms QTC Calculation(Bazett) 443 ms P [place] 67 degrees R [place] -53 degrees T [place] -11 degrees Sinus rhythm with marked sinus arrhythmi a Left axis deviation Left bundle branch block Abnormal ECG No previous ECGs available Confirmed by MD MARY, JERMAN ([id number]) on 11/11/2019 7 :01:02 AM Procedure Note Interface, External Ris In - 11/11/2019 7:01 AM CDT Ventricular Rate 64 BPM Atrial Rate 64 BPM P-R Interval 172 ms QRS Duration 132 ms Q-T Interval 430 ms QTC Calculation(Bazett) 443 ms P [place] 67 degrees R [place] -53 degrees T [place] -11 degrees Sinus rhythm with marked sinus arrhythmi a Left axis deviation Left bundle branch block Abnormal ECG No previous ECGs available Confirmed by MD HERNANDEZ YOCHAI ([id number]) on 11/11/2019 7:01:02 AM Performing Organization Address City/[facility] [place] [facility] Centercoct Phone Number [employer] MUSE ABORH, manual (11/10/2019 8:18 AM CDT) Pathologist Sig nature ABO Grouping O [facility] Rh Factor POS [facility] [place] Specimen Blood Performing Organization Address City/State/Zipcode Phone Number [facility] [address] [place] [address] Type and screen, automated (11/10/2019 5:11 AM CDT) Pathologist Sig nature ABO/RH AUTOMATED O POSITIVE [facility] Ab Scrn NEGATIVE [facility] Specimen Blood Performing Organization Address City/State/Zipcode Phone Number [facility] [address] [place] [address] CBC with platelet count + automated diff (11/10/2019 5:11 AM CDT)Only the most recent of4 resultswithin the time period is included. Pathologist Sig nature WBC 13.9 (H) 3.5 - 10.5 [facility] K/L [facility] RBC 4.03 (L) 4.63 - 6.08 [facility] M/L [facility] Hemoglobin 11.0 (L) 13.7 - 17.5 [facility] GM/DL [facility] Hematocrit 37.3 (L) 40.1 - 51.0 % [facility] MCV 92.6 (H) 79.0 - 92.2 fL [facility] MCH 27.3 25.7 - 32.2 pg [facility] MCHC 29.5 (L) 32.3 - 36.5 [facility] GM/DL [facility] RDW 14.8 (H) 11.6 - 14.4 % [facility] Platelets 1,021 (H) 150 - 450 K/CU [facility] MM [facility] MPV 9.1 (L) 9.4 - 12.4 fL [facility] nRBC 0 0 - 0 /100 WBC [facility] % Neutros 78 % [facility] % Lymphs 11 % [facility] % Monos 6 % [facility] % Eos 3 % [facility] % Baso 1 % [facility] # Neutros 10.92 (H) 1.78 - 5.38 [facility] # Lymphs 1.46 1.32 - 3.57 [facility] # Monos 0.88 (H) 0.30 - 0.82 [facility] # Eos 0.46 0.04 - 0.54 [facility] # Baso 0.12 (H) 0.01 - 0.08 [facility] Immature 1 0 - 1 % [facility] Granulocytes-Relativ [facility] e [place] Specimen Blood Performing Organization Address City/State/Zipcode Phone Number [address] [address] [place] aPTT (11/10/2019 5:11 AM CDT) Pathologist Sig nature PTT 47.6 (H) 22.5 - 36.0 seconds [facility] Specimen Blood Performing Organization Address City/State/Zipcode Phone Number [address] [address] [place] Prothrombin time/INR (11/10/2019 5:11 AM CDT)Only the most recent of4 results within the time period is included. Pathologist Sig nature Protime 15.9 (H) 11.9 - 14.2 seconds [facility] INR 1.3 <=5.9 [facility] Specimen Blood Narrative Performed At Effective 11/02/2018: PT Reference Range [facility] Change New: 11.9-14.2 Previous: 11.7-14.7 RECOMMENDED COUMADIN/WARFARIN INR THERAPY RANGES STANDARD DOSE: 2.0-3.0 Includes: PROPHYLAXIS for venous thrombosis, systemic embolization; TREATMENT for venous thrombosis and/or pulmonary embolus. HIGH RISK: Target INR is 2.5-3.5 for patients wiht mechanical heart valves. Performing Organization Address [facility] [place] [facility] Center[facility] Phone Number [address] [address] CENTER Phosphorus (11/10/2019 5:11 AM CDT)Only the most recent of3 resultswithin the time period is included. Pathologist Sig nature Phosphorus 3.0 2.3 - 4.7 mg/dL [facility] Specimen Blood Narrative Performed At Reinforcing Bar Setter ID - [facility] Performing Organization Address [facility] Phone Number [address] [address] CENTER Magnesium (11/10/2019 5:11 AM CDT)Only the most recent of3 resultswithin the time period is included. Pathologist Sig nature Magnesium 1.5 (L) 1.6 - 2.6 mg/dL [facility] Specimen Blood Narrative Performed At [employer]forcing [employer] Setter ID - [facility] Performing Organization Address [facility] [place] Phone Number [address] [address] [place] Hepatic function panel (11/10/2019 5:11 AM CDT)Only the most recent of3 results within the time period is included. Pathologist Sig nature Protein, Total 7.0 6.0 - 8.3 gm/dL [facility] Albumin 3.0 (L) 3.5 - 5.0 g/dL [facility] Total Bilirubin 1.3 (H) 0.2 - 1.2 mg/dL [facility] Bilirubin, Direct 0.7 (H) 0.1 - 0.5 mg/dL [facility] Alkaline Phosphatase 70 40 - 150 U/L [facility] AST 13 5 - 34 U/L [facility] ALT <6 (L) 6 - 55 U/L [facility] Specimen Blood Narrative Performed At Reinforcing Bar Setter ID - PIAYA L [facility] Performing Organization Address City/State/Zipcode Phone Number [facility] [address] [place] [address] CENTER Comprehensive metabolic panel (11/10/2019 5:11 AM CDT) Protein, Total 7.0 6.0 - 8.3 [facility] gm/dL [facility] Albumin 3.0 (L) 3.5 - 5.0 [facility] g/dL [facility] Alkaline 70 40 - 150 U/L [facility] Phosphatase [facility] Total Bilirubin 1.3 (H) 0.2 - 1.2 [facility] mg/dL [facility] Sodium 141 136 - 145 [facility] meq/L [facility] Potassium 3.9 3.5 - 5.1 [facility] meq/L [facility] Chloride 105 98 - 107 [facility] meq/L [facility] CO2 26 22 - 29 meq/L [facility] BUN 8 7 - 21 mg/dL [facility] Creatinine 0.90 0.57 - 1.25 [facility] mg/dL [facility] Glucose 79 70 - 105 [facility] mg/dL [facility] Calcium 8.5 8.4 - 10.2 [facility] mg/dL [facility] AST 13 5 - 34 U/L [facility] ALT <6 (L) 6 - 55 U/L [facility] EGFR 102Comment: mL/min/1.73 [facility] ESTIMATED GFR IS sq m [facility] BCM NOT ACCURATE MEDICAL CENTER CREATININE CLEARANCE IN PREDICTING GLOMERULAR FILTRATION RATE. ESTIMATED GFR IS NOT APPLICABLE FOR DIALYSIS PATIENTS. Specimen Blood Narrative Performed At Reinforcing Bar Setter ID - PIELSY Gutierrez [facility] CENTER Performing Organization Address City/[facility]/Zipcode Phone Number [facility] [address] [place] [address] CENTER Basic metabolic panel (11/10/2019 5:11 AM CDT)Only the most recent of3 results within the time period is included. Sodium 141 136 - 145 meq/L [facility] Potassium 3.9 3.5 - 5.1 meq/L [facility] Chloride 105 98 - 107 meq/L [facility] CO2 26 22 - 29 meq/L [facility] BUN 8 7 - 21 mg/dL [facility] Creatinine 0.90 0.57 - 1.25 [facility] mg/dL [facility] Glucose 79 70 - 105 mg/dL [facility] Calcium 8.5 8.4 - 10.2 [facility] mg/dL [facility] EGFR 102Comment: mL/min/1.73 [facility] ESTIMATED GFR IS [facility] MEDICAL ACCURATE CENTER CREATININE CLEARANCE IN PREDICTING GLOMERULAR FILTRATION RATE. ESTIMATED GFR IS NOT APPLICABLE FOR DIALYSIS PATIENTS. Specimen Blood Performing Organization Address City/[facility]/Zipcode Phone Number [facility] [address] [place] [address] CENTER US renal complete (11/08/2019 7:25 AM CDT) Specimen Narrative Performed At FINAL REPORT [employer] Technique: Grayscale and color doppler r enal ultrasound was performed on 11/08/2019 Clinical History: Sylvester. Comparison Study: None. Findings: The right kidney measures 10.3 x 4.4 x 4.8 cm and left kidney measures 10.0 x 5.4 x 4.8 cm. The re is mild right hydroureteronephrosis. There is no evidence of nephrolithiasis or renal mass on either side. The echogenicity is normal bilaterally. Color flow is documented to both kidneys . The bladder is decompressed by Murillo cat heter. Impression: Mild right hydroureteronephr osis. Signed: Krystal Wan MD Report Verified Date/Time: 11/08/2019 11:08:21 Reading Location: [address] Radiolog y Reading Room Procedure Note Interface, External Ris In - 11/08/2019 11:10 AM CDT FINAL REPORT Technique: Grayscale and color doppler r enal ultrasound was performed on 11/08/2019 Clinical History: Sylvester. Comparison Study: None. Findings: The right kidney measures 10.3 x 4.4 x 4.8 cm and left kidney measures 10.0 x 5.4 x 4.8 cm. The re is mild right hydroureteronephrosis. There is no evidence of nephrolithiasis or renal mass on either side. The echogenicity is normal bilaterally. Color flow is documented to both kidneys . The bladder is decompressed by Murillo cat heter. Impression: Mild right hydroureteronephr osis. Signed: Krystal Wan MD Report Verified Date/Time: 11/08/2019 1 1:08:21 Reading Location: [address] Radiolog y Reading Room Performing Organization Address City/State/Zipcode Phone Number [facility] Urinalysis w/Microscopic + Reflex to Culture (11/08/2019 4:50 AM CDT) Color, UA Yellow [facility] Clarity, UA Cloudy [facility] Specific [place], 1.026 1.001 - 1.035 [facility] pH, UA 6.0 5.0 - 8.0 [facility] Protein, UA 30 mg/dL (A) Negative [facility] Glucose, UA Negative Negative [facility] Ketones, UA 60 mg/dL (A) Negative [facility] Bilirubin, UA Negative Negative [facility] Blood, UA Small (A) Negative [facility] Nitrite, UA Negative Negative [facility] Leukocytes, UA Large (A) Negative [facility] Urobilinogen, UA 2.0 (H) 0.2 - 1.0 mg/dL [facility] RBC, UA 12 /HPF [facility] WBC, UA 1,751Comment: /HPF [facility] Wbc clumps seen [facility] Bacteria, UA Many [facility] Specimen Source [facility] Specimen Urine Narrative Performed At Reinforcing Bar Setter ID - [auto] [facility] Reinforcing Bar Setter ID - tech Performing Organization Address City/[facility] Phone Number [facility] [address] [place] [address] CENTER Urine culture (11/08/2019 4:50 AM CDT) Pathologist Sig nature Result See comment [facility] Specimen Urine - Urine (substance) Narrative Performed At <10,000 col/mL Gram negative belle. [facility] Performing Organization Address City/[facility] Centercode Phone Number [facility] [address] [place] [address] CENTER after 04/16/2019 Insurance Payer Benefit Plan / Subscriber ID Effective Phone Address T ype Group Dates MEDICARE MEDICARE A B [id number] 2016-Prese Medicare nt MEDICAID - MEDICAID [id number] 2016-Prese Medi caid MEDICAID MGD [employer] nt Non-Co ntract CARE ed CDC REVIEW CDC REVIEW [id number] 2019-[place] [place] [address] MEDICAID MEDICAID OF [id number] Effective for [facility] [place] all dates Advance Directives For more information, please contact: [phone] Code Status Date Activated Date Inactivated Comments Full Code 11/08/2019 3:53 AM 11/11/2019 9:24 PM This code status was determined by: Patient
--- OUTSIDE RECORDS SUMMARY | 2020-04-16 09:46 | XMS REPORT | Continuity of Care Document ---
:1950 Author Organization [facility] t Address [address] [place] [address] [place] [address] Care Team Providers Name Role Phone Pcp, No Primary Care Physician Unavailable Alyson PATEL, Rene Mckeon Attending Clinician Marium WHITE Attending Clinician Unavailable Marium White MD Attending Clinician Alban PATEL Attending Clinician Josefina Pascual MD Attending Clinician [phone] Mike Shields MD Attending Clinician Jarrett Vee MD Attending Clinician Olayinka Escalera CRNA Attending Clinician [phone] ALBAN Admitting Clinician Unavailable Payers Payer Name Policy Type Policy Effective Date Expiration Date Sour ce Number MEDICAREMEDICARE A [id number] [address] [place] [id number] 2016-P 00:00:[facility] - MEDICAID [id number] [address] MGD CAREMEDICAID 00:00:00 - Medica l [id number] Daphne nt -PresentMedicaid Non-Contracted CDC REVIEWCDC [id number] 2019 [address] [place] [id number] 00:00:00 - Medical -PresentPO Daphne WILLOUGHBY [facility] [id number] MEDICAIDMEDICAID OF [id number] [place] [id number] - Medical e for all Center datesMedicaid Problems Condition Condition Condition Status Onset Resolution Last Treating Co mments Source Name Details Category Date Date Treatment Clinician Date Lung mass Lung mass Disease [facility] Medical [place] Cough with Cough with Disease Active [facility] hemoptysis hemoptysis 11-07 Merly kes - 00:00: Medical [place] Obstructiv Obstructiv Disease Active [facility] e uropathy e uropathy 11-07 Merly kes - 00:00: Medical [place] Allergies, Adverse Reactions, Alerts This patient has no known allergies or adverse reactions. Social History Social Habit Start Date Stop Date Quantity Comments Source Sex Assigned At [facility] Tobacco use and 2019-11-10 2019-11-10 Never used [facility] - exposure 00:00:00 00:00:00 [facility] Smoking Status Start Date Stop Date Source Former smoker 2019-11-10 00:00:2019-11-10 00:00:00 [facility] Medications Ordered Filled Start Stop Current Ordering Indication Dosage Frequency Signature Comments Components Source Medication Medication Date Date Medication? Clinician (SIG) Name Name docusate Yes 100mg QD Take [address] [facility] sodium 6-06 mg by [facility] - (COLACE) 19:23: mouth Medical 100 MG 57 daily. [place] capsule tamsulosin Yes .4mg QD Take 0.[address] [facility] [address] (FLOMAX) 6-06 mg by [facility] - 0.4 mg Cap 19:23: mouth Medica l 24 hr 57 daily. [place] capsule donepeziL Yes 10mg QD Take [address] (ARICEPT) 6-06 by mouth [facility] - 10 MG 19:23: nightly. Medical tablet 57 [place] aspirin 81 2019-0 Yes 81mg QD Take [address] MG EC 6-06 by mouth [facility] - tablet 19:23: daily. Medical 57 [place] finasteride 2019-0 Yes 5mg QD Take [address] (PROSCAR) 5 6-06 by mouth Luke s - mg tablet 19:23: daily. Medica l 57 [place] multivitami Yes 1{tbl} QD Take [address] n per 6-06 tablet by [facility] - tablet 19:23: mouth Medical 57 daily. [place] memantine Yes 10mg Q.5D Take [address] (NAMENDA) 6-06 by mouth 2 Luke s - 10 MG 19:23: (two) Medical tablet 57 times Center daily. omeprazole Yes 20mg QD Take [address] (PRILOSEC) 6-06 by mouth [facility] - 20 MG 19:23: daily. Medical capsule 57 [place] mirtazapine Yes 15mg QD Take [address] [facility] (REMERON) 6-06 by mouth [facility] - 15 MG 19:23: nightly. Medical tablet 57 [place] senna Yes 1{tbl} QD Take [address] (SENOKOT) 6-06 tablet by [facility]ukes - 8.6 mg 19:23: mouth Medical tablet 57 daily. [place] benzonatate Yes 100mg Take [address] (TESSALON) 6-06 mg by [facility]ukes - 100 MG 19:23: mouth 3 Medical capsule 57 (three) Center times daily as needed for Cough. cefpodoxime 2019- No 200mg Q.5D Take [address] (VANTIN) 6 06-16 tablet [facility]ukes - 200 MG 00:00: 23:59 (200 mg Medical tablet 00 :00 total) by Center mouth 2 (two) times daily for 10 days. metoprolol Yes 50mg Q.5D Take [address] tartrate 9-26 by mouth 2 [facility] - (LOPRESSOR) 00:00: (two) Medic al 50 MG 00 times Center tablet daily. Vital Signs Vital Name Observation Time Observation Value Comments Source Systolic blood 2019-11-11 15:26:00 101 mm[Hg] [facility] pressure [facility] Diastolic blood 2019-11-11 15:26:00 66 mm[Hg] [facility] t [facility] pressure [facility] Heart rate 2019-11-11 15:26:00 72 /min [facility] Body temperature 2019-11-11 15:26:00 36.78 [facility] Respiratory rate 2019-11-11 15:26:00 22 /min [facility] Oxygen saturation in 2019-11-11 15:26:00 99 /min [facility] - Arterial blood by Medical Ce nter Pulse oximetry Body height 2019-11-08 01:16:00 172.7 cm [facility] Procedures Procedure Date / Time Performing Clinician Source Performed REPORT OF PROCEDURE - 2019-12-13 10:17:17 Rene Shields [facility] ENDOSCOPY URL [facility] REPORT OF PROCEDURE - 2019-11-14 11:50:11 Provider, Default [facility] ENDOSCOPY SCAN [facility] TRANSFUSION SERVICE REPORT 2019-11-11 17:51:06 Provider, Default [facility] - - SCAN [facility] TISSUE EXAM 2019-11-10 19:26:00 Rene Shields [facility] EBUS FNA REQUEST 2019-11-10 18:58:30 Rene Shields [facility] FINE NEEDLE ASPIRATE BY 2019-11-10 18:58:00 Rene Shields [facility] EBUS FNA REQUEST 2019-11-10 18:55:15 Rene Shields [facility] FINE NEEDLE ASPIRATE BY 2019-11-10 18:55:00 Rene Shields [facility] EBUS FNA REQUEST 2019-11-10 18:50:06 Rene Shields [facility] FINE NEEDLE ASPIRATE BY 2019-11-10 18:50:00 Rene Shields [facility] EBUS FNA REQUEST 2019-11-10 18:46:03 Rene Shields [facility] FINE NEEDLE ASPIRATE BY 2019-11-10 18:46:00 Rene Shields [facility] BRONCHOSCOPY,ENDOBRONCHIAL 2019-11-10 18:07:00 Rene Shields [facility] ULTRASOUND ([facility]) [facility] TRANSTRACH/ TRANSBRONCH SAMPLING BRONCHOSCOPY,CRYOTHERAPY 2019-11-10 18:07:00 Rene Shields [facility] - TREATMENT FOR STENOSIS Medical C enter BRONCHOSCOPY,DILATATION 2019-11-10 18:07:00 Rene Shields [facility] BRONCHOSCOPY,ASPIRATION 2019-11-10 18:07:00 Rene Shields [facility] TRACHEOBRONCHIAL TREE Medical Ce nter SARS-COV2/RT-PCR ([facility] & 2019-11-10 16:13:00 Rene Shields [facility] - REF LABS) [facility] ECG 12-LEAD 2019-11-10 13:43:28 Unknown, Hl7 Doctor [facility] ABORH, MANUAL 2019-11-10 08:18:00 Varsha Bynum [facility] BASIC METABOLIC PANEL (7) 2019-11-10 05:11:00 [facility] HEPATIC FUNCTION PANEL 2019-11-10 05:11:00 [facility] MAGNESIUM 2019-11-10 05:11:00 [facility] PHOSPHORUS 2019-11-10 05:11:00 [facility] COMPREHENSIVE METABOLIC 2019-11-10 05:11:00 Rene Shields [facility] PROTHROMBIN TIME/INR 2019-11-10 05:11:00 Rene Shields [facility] APTT 2019-11-10 05:11:00 Rene Shields [facility] TYPE AND SCREEN, AUTOMATED 2019-11-10 05:11:00 Rene Shields [facility] CBC W/PLT COUNT & AUTO 2019-11-10 05:11:00 Rene Shields [facility] S [facility] BASIC METABOLIC PANEL (7) 2019-11-09 04:21:00 [facility] HEPATIC FUNCTION PANEL 2019-11-09 04:21:00 [facility] MAGNESIUM 2019-11-09 04:21:00 [facility] PHOSPHORUS 2019-11-09 04:21:00 [facility] PROTHROMBIN TIME/INR 2019-11-09 04:21:00 [place] [facility] CBC W/PLT COUNT & AUTO 2019-11-09 04:21:00 [facility] US RENAL COMPLETE 2019-11-08 07:25:00 [facility] BASIC METABOLIC PANEL (7) 2019-11-08 05:44:00 [facility] HEPATIC FUNCTION PANEL 2019-11-08 05:44:00 [facility] MAGNESIUM 2019-11-08 05:44:00 [facility] PHOSPHORUS 2019-11-08 05:44:00 [facility] PROTHROMBIN TIME/INR 2019-11-08 05:44:00 [facility] CBC W/PLT COUNT & AUTO 2019-11-08 05:44:00 [facility] URINE CULTURE 2019-11-08 04:50:00 [facility] URINALYSIS W/ REFLEX URINE 2019-11-08 04:50:00 [facility] Plan of Care Planned Activity Planned Date Details Comments Source Future Scheduled 2020-02-06 INFLUENZA VACCINE (#1) [facility] - Test 00:00:00 [code = INFLUENZA Medical Ce nter VACCINE (#1)] Future Scheduled 2017-10-06 MEDICARE ANNUAL [facility] - Test 00:00:00 WELLNESS (YEAR 2 or Medical Center FIRST YEAR if no IPPE) [code = MEDICARE ANNUAL WELLNESS (YEAR 2 or FIRST YEAR if no IPPE)] Future Scheduled 2016 PNEUMOCOCCAL 65+ YRS [facility] - Test 00:00:00 (1 of 1 - Medical Center [id number] PCV13) [code = PNEUMOCOCCAL 65+ YRS (1 of 1 - [id number] PCV13)] Future Scheduled [address] [facility] - Test 00:00:00 [facility] colon (procedure) [code = 651095297] Encounters Start End Encounter Admission Attending Care Care Encounter Source Date/Time Date/Time Type Type Clinicians Facility Department ID 2020-03-18 2020-03-18 Office Rene Shields Juan [id number] 10:29:00 10:59:00 Visit Mike AMBULATOR [id number] Y [id number] Results Test Description Test Time Test Comments Results Result [facility] e Comments FINE NEEDLE 2019-11-14 Medical Cytology Report ASPIRATE BY EBUS 11:49:00 Case: [id number] Authorizing Provider: Rene Shields MD Collected: 11/10/2019 06:55 PM Ordering Location: [address] Received: 11/13/2019 09:26 AM Service Pathologist: Amy Pineda MD Specimen: Lymph Node, Subcarinal, Station 7 LYMPH NODE, SUBCARINAL, STATION 7 EBUS FNA BY CLINICIAN (CYTOSPINS AND CELL BLOCK OF ASPIRATE): - SATISFACTORY FOR EVALUATION - NEGATIVE FOR METASTATIC MALIGNANT CELLS - EVIDENCE OF LYMPH NODE SAMPLING (POLYMORPHOUS LYMPHOID TISSUE PRESENT) Signing Pathologist Direct Phone Line: [phone] y signed by Amy Pineda MD on 11/14/2019 at 11:49 AMPlease see cases [id number] and [id number] through [id number], [id number] lymphadenopathyLYMPH NODE, SUBCARINAL, STATION 7 EBUS FNA31 mls in cytorich red; 2 cytospins, cell blockCollected: [id number]: [id number].The interpretation of this case included the use of immunohistochemistry or special stains.Control Slides Examined: In-house known positive controls were evaluated along with the test tissue. These control slides run alongside of the patients sample show appropriate staining. Internal positive and negative controls when available are evaluated Immunohistochemistry technical testing was performed at [facility], Pathology Laboratory where it was developed and its performance characteristics were determined. It has not been cleared or approved by the U.S. Food and Drug Administration. The FDA has determined that such clearance or approval is not necessary. The test is used for clinical purposes. It should not be regarded as investigational or for research. This laboratory is certified under the Clinical Laboratory Improvement Amendments of 1988 (CLIA-88) as qualified to perform high complexity clinical laboratory testing.[facility], Department of Pathology, [address] [place] [address], [facility], [address] [place] [address], [facility], [facility] of [facility], [address] [place] [address], Fine Needle Aspiration by EBUS 2019-11-14 11:48:00 Test Item Value Reference Range Interpretation Comme nts Case Report (test code = 104) Medical Cytology Report Case: [id number] Authorizing Provider: Rene Shields MD Collected: 11/10/2019 06:58 PM Ordering Location: [address] Received: 11/13/2019 09:26 AM Service Pathologist: Amy Pineda MD Specimen: Lymph Node, Lower Paratracheal, Left, Station 4L DIAGNOSIS (test code = 3220) [id number] pc pAWgFTbkwgHvNGpay7CdY3IcLhVlTArnikMgSGBg PktkknslPGZfQTD7iyPnUBThXVviXFGjUBrmPe1i fFBkxDkcPlDmIBNgy8pewsPGsvxfqIg0a3plCRAx AmM1xQFkFRvyL8haklUohHWzDSHvLMg1rE29FYPj mK2rpAAbSVtblqQdPDijbsJbdjDiZzt6UIKeM8rm MYDbIAQkA5PwQD7zSIDoBhc5GRB8QMG7uAlrj0Z4 fSXjsTExkEviQhUqJnYqCNPCf0UcWRb1bSalJ6Ro YFJdAeU4kBAaZNVpGMybVAJbKTShqkZ2pS94PNkl qbC8bWZbt6Ysl60im544iY9pgIDqAHY0FQEuFNAy xAEaPEMhRSV7PNFutSIyV3z3WlRpaYZxB3J3VtFt qXXxV8A1JfMfeWEbW8N4UsGbiFJpBUCmoICxGt7h vJEsvVDmrg1new55MGR3u0AqhJcvFDM6NKU9HpEt Fv9wmSHbSXRoXO3vZkIonVSkPXGusl83xBlkTDmo ypRpiK4lCyXzLGDeoLJsPCKcTX2ctBRkPHQmkI8s nvzmAOFhAuKputjrABDotQrxpbFgNi8bfZvsTFX8 KJdeC7zgmI5rLoA2SSbwF8caxA6wPIv1EMyspCO2 OXPltH3jNN6ichhkz9asSeGcPW5gqiprn8cnAmBe VL1clsj3b4cfBhWsFN5xtpsfc7znDjKyHPdwRKLo tzdpARYwo3FchkzrTCUyq3NpQ4TckNdqD10reJkv U54kKVZrjOuzrR5erMdgsG7sDcHkBeLfYBhwuHrm bGFpblxmMFxmczIwXHBsYWluXGYxXGZzMjAgTFlN QVseDh1QGDyjPI5GASWcATRIIRXZWPHPHGGKGBWM AGMDPBUCICXSVQ7FWECPENYYVADoBh5MSTCLNJRT DQ9OQ4gUEsStH6zMQ3OLPQ6UVAPVARLQKEaDVXLF O3UGRS7YXVHVCXzZERQNIHmtxEAjBIc4ekBwslfp bFxwbGFpblxmMFxmczIwXHBsYWluXGYxXGZzMjAg LOHpzy0oP6DQVNKPSHONS3JDCYJQMnLKWlQRIKFW MP2XIYUjloh+BC8omb8pZbTQZSHPQuJfEn9CUA6W UYZMOIBLYQSdTJLULJrYMM0KZJJAUDeCNRRyijyl YQKuRQAwoKXoCXK5mGFignKrfMnxiUsytM2lAjOs ZnMyMFxwbGFpblxmMVxmczIwIFx+OU2fbc2kNGDE NPSLV5IbW7UoYFwPTIzmCn0WMVFRLY3QJFxRPaMt UM2INA3ECsQHL7VXPKfTBIIUR9nCHEWML4BYBJRO GtJNRZ3OCSmlUBV0a1welWUyXROhbWCkRZThSMps zaDmCXXmDwdljmouDSPoUFH3eaDqDOOsRQbhYRNu WWrySd5vyATvcBihQbKrXATpc1npglLQgfpwcLv4 s5hbIPXiRnZ2zOVjHNooS3rtlnHnnJVqPRYkLFr4 rB79FMEnhX7brDErWNkeqfJvTdY6RWhePAFiFtV9 PYDsbMQtXFUaZ6tkJFJbIFysBIPdEBtilGSrQTT6 sVnco1C1oXTfiCFyfZadQwCpUnWgImPOn6EdDVt5 xUkrR4DxWPCjYmV5uUBpHMHiJAolYTEpPVFxjeC9 qO04NHqyoeA1mAJfn2Xpa15qz528rB0swOUrLLC4 RPLgFUUxwCKsIYHaYJL6RVFwzWHdE5mkPSWxAI2c upciICsbQVrrHEZguCC1EUJurWXjX5DeOVKfUVlb TDOxtsb8FkGoCm8jmKBrrXkbXNyrd0eqc3akeWWr Fnu9IWWwPkRaQeqgIBadq5Ybt3pkYAYfty1fGJR8 mCZxkDuwd9L7xZWzFFFtzIYdWFAqVB8uzSDpEAYu uB9simhrEVTrTvXwurzfGXVzsDwpgyXfQl9adXfo HDY1CNszQ8tmbS2rSgG7GIscE6xbmZ6gIYl3UJne CRMlxDP3kaV3FFFtnUQwP9WtpW8mHTEhDF1kcpv8 v5laTSQ7NGghMKQaGgK3fgH3DYSjoZDwHVKthLnn OThmk272GEQ7YqMtTVWtt5HmJ3DznToxW38wdPps D38aCGIdxHyaxS3tsRscxT3lBqWgHsNkCPkqiHxe BM9sMTSwF0owtWSdHSHwYKUmN4adQlDytQ3lbBch SFznimZjOJFkTis3SMUsbAXbVQLyPtb8USYaTJXp Z35bngbhAYN6iD1lt6fjd3DsLWppBVC3LVHkt35d YAdamjC4LBauJp0qPgLaJXK5VLxttMQncX0= COMMENT (test code = 3359) k1petAXyYARggDUjLwLcGSXdJKQht9zrYWOheDSe GeZsYrKvYmRmTgeumCWnWGDaHwLmf1adt634gHXn q8kmGFUcWzU1jMKwRYMasMUgL554LPQlTMezk8on m1XgPKNjxLMir4S7VJZHeqtvqFr9hBugZ07aq1Y8 MfmbU4nlJYIvGABsV4JuSE8mDZZuFls4DJC3HAU3 CCXrLVVmK2XvPP0rDMUhbNToCNz9d4ksmGjcVGCj PSF2n0roUOqmceGfPF1rvh4nlKw0w2bftbVoLRLl GGBcwRYIESHsM0VdvSglKc2pcFo3nUuuMdnxJOL9 Wtb5YM2wjr51lui4bXpzPINjcgpyZpR9OHohQHYv mmkmFSy1OPbdPSHlfWssJGooTJGohlfzNNkpZVYg jIxeUBabYYDkIdwdRLasURPbLWG4EOhol325TLQ8 LSfop9luh1xbjOZtVcy9PRPlUlUjFyypCVmtu1Mi m4zkHNFxno3dWYD0eCFwnYatu9F4cMHsAVVqfUWn kmAjBXJgWfA8HIqfPG9idt03HWQcRCW1qv7saYDo fStkasByqOXzKZxuE3DjPUCom160HULoY5DbETKc f7V3pfLfJkBnTFKwxET0duD0HTYkHWe3lDLneoD3 ojPrcACkU1objB80ZxBgeZEgB9GdfE56LnFdmMWt C5KjfI93PkTtkKKsG6MlbD94FlOhfABqFKRdoWAy Fw0niHLcdFMyh6PddEZzQWfrM58ki882LBPkscJk J6tsfTLmrjjcnEEkqlciAVsvsyC0FBWltbYkaClo tD1tMhRbJcMpLLjyOE4eUWKzA3iseOXpBSZzNTIb F5tkMvWyqU9qvIutARfwclRsZSMwKAUaKTJqTSRl T8EiMWTdDmXkTIMtTKmoQE2yANRlYW4gPcy5JKLi hy06R2mlZYD9U8nrSVV2 CPT Code(s) (test code = 3357) n8kmwVZrKIKdrMPeAdFvOWWmVYZlt0giUMPe bGFu StPdJzJuZuDoVcgoxYXkGCSiOoHic5qmx037jYHn p1fqCVYpNgF3uQBlFHCcmMSgG924f3hcg1rzqrQk kFH9OPJlCVB7YWmzkrQnxaH5KQsfkCVkAtJ4QOuc mlAsYRovpyQzprUvKop8PUKqZ231NRN0xHuaq8gs WUA6ILUjFXSqUoVqZz7msFVqJ758VYSdUYLZRGEm fMe8YFEwxtXpqwXjeAGFl908Z708z5unPCMaxsMe lQhLkcoju8wuV874YSMpoWUukwCdUsYbZDLipLLd aOO2RQVqVG2kgmcqEdJnDD0trizvWdItVD9jvog0 YoWdKD1ysxyaQiYqJPgeIPYduqtaKBUhd8Drltqj ES2aI4Elp8A5eH5kxKIaLFModPRmQkYeSKPdax9p fUGtLEuli0LnGLA6soC9lWXqqCBuHVXjIO93Taof h2TnQcaeYNE1FOJezqBgb1Ceh5stPlFtvsGsC5gf R5KmPSObUPNfAVEeVfFitlLng3Nez5UbdIEjmAt1 t0ipIOFyCLJzqZpaf2toNIB7FKCaR2Z5aRRrn2uh GGcrLSMlkAZ4fwilGDwxRJYnvtH9gtnnNGddSUPt cUX9jkulQGtoRFZvJrP4thjrXXwlMWFnBRK6WQvg l078UOU1WDsnIquwIVwuWMKbrqHxkqBybMnwMPPp EQZuNTruTJVaCNurPIFnZQZtTvEeaDrlbJkuiO5x MxInUiOdPGeuIC0sADHgB6jtjTNlGPZfBLBwV0lo KrXaqN5vtIwcSSptqeXeMCb9UHvqGKM3AWXaOKmo YXJ9 CLINICAL DATA (test code = 3355) r3nvkRKhOVNlfSAiWzWiGOIoDJEda8arNH VmbGFu ZvZbMfExKuMrMjuzmXTtBUHnNgOio1ipu773iDKw m4naWMViRwS1xFRwBVXbfDXuU900EHNcWQzvy7uv l9OtTGIdhZWnj2D8TAKItglwnFk2yZvtB04tz0M3 NqwjR5ddFWXnZJTfQ4ErCR1gFFDeAsv2XGH8ODO3 YYTsGQQrP6OqWS9xQVFrnESvCRp5o7kuqPvnDTUg ZDF8c4uqEGnekyDmLG2vdh7fgLz6b7yfewQuBMBc KWFzoQSXIJWxN4RmbHxdYn5mnRy9vFvkTrxpYGN4 Vri3ER3dsr20xny9uZaxVNReyspeNvN3HOsnYOFy aablHUg6TVumFNTegElfKGmwSURsmdbxJFtbKCKw sIfwHRsyMXPuHiuyVGvtVBYkEXC5DFuby041EXJ1 DRube6rjk8sqsSBwIax8WJRfFkPsZjaaFZymg9Hr a4vaFQCyfq4lUGF0kDWtiHevn5K2iOZoCUEynDXn ejWqGTBqIlN3REzwJQ0uqo04UEBtZCL7ul0dfXYk qVjihlPrrKQgGLwkN8FrPMQdp725JTPnP2MjHRYq z1B3liKlHiZvSJNooUX1ixR6GCNsVLt7rSKioeO5 lnHjxHGkP8qspL75ZtDfgQXiD1WkgL06DyYsmXIa P2FccY15FpUhaRHuE2AbvP62QbIpsVMxIVPtyTLp Cg6lcPAdxNZyq5GopXWoUAmcW00yw760AAZwbkQa N0nvlNMgijipsRSolkqlWBpftdP1STCxRDTtJPdo XGYxXGZzMjBcbGFuZzEwMzNcaGljaFxmMVxkYmNo CSPzNQejF5mmIzOmWsYcGKXTIZWiIHW7cF0gvHKu zU9reJSzPP8zxXJ4dNvcbAQawB== SPECIMEN SOURCE (test code = 3377) y0vrcLUqPFEesLZjVoYsSUXbUHZdt8wa ZGVmbGFu SbYlMvGtThInUrfbcWTkANDxTeNak3bff401eUTq d1mqEFAvPnV1qCYeDHIpbLWgH146e8ihv0oppsJm mKW0RLOkZEX6ZTpxvlCmxwP4UUessSVpKtE9YAnf phKxNXvvqaOdflShCoq4PLAcN930IQL9pGqwi3cd CYE1ZZBnEJSsOtGfJq8leGDxX834FRYmBJADOAJp gMe1ZVCurdXenqZubWLAj464B944d5miDZGvlyGu bVeRsiocp6frA884UUPcjMBfzsZnQlYkLLEnwNTu qUP6FLEzVK0gmnxoBbYgML6wunyxVlQzRV6mspw1 YgZmKT9byhyvZpMwERbvXUWguvraVTCtm2Poyzmd RA6jD0Cav8F7gK9qlYXiULQshOWkDrQfNJHoev8f wSJjXCyjr6JtDCI9smI4lYJesKNmRFEuXH62Zykc m0TaWmyzTZB8DKZifrIuk8Zxm6guRlLwbkVzV8pc C1GoVEXdVTKiYVDnPvOltpNlm1Qjv4PjtFVkxGe2 j9xyRMMkFTBhqHcte4kuBOX6RYRzB7J1eDEpf6hw SVnhKKAnbQS1wdqnZHqpJTMkeiA6ybngJEoiAITc nTN1awjaEYvkBDFbOuN7ktroGYjnFZHoMMS9AEpq e391ZHM8UWilPlfxNPxeTZLcjvWsqcFjdAoiEBKg UQXaWBwoPZRiTSooFCShYAZeLiDjsPrstTkqdY9j HsXoYyKnUPgyNS3sHVLlR4ykiVYqWCLyJESeN0ns EtLuoO7usEmaPVuivtLdNLmWUVGKXX5NLMLiMFqL L9AQUXEMGnVYBcYAFMKWCDgeUBIZCRsrU1CIGMtX YeC1ZQNYGtRLABBDACxvSUD2 GROSS DESCRIPTION (test code = 3366) l1fwiVTbVPKdeWJtQmAyUBZsQYQjs9 lcZGVmbGFu NnDtJkKyZzOjSrmxaHTjLUIlEdOdp0hax903dDLq e0vsJQPpUxQ8pHTnWVJizLPsV442JLWnHMrln1zm r4XiGEGyqXDif2F4SPWDhitrqNi4fHcvP22vq5K7 AiuxD1qzZEQdXYJuG5GaIH1yETDzFnv0EUS9NCH4 ZPReFFOcL2NqBA1nVANlnUWrJXt0z4fdfRvqKCJv RLH0s7jmCIqdmtWkGG8fud3xaRb7m2nsuaMlRXHu YGJhrJTDZVDlK5BwoKldSq8rfFc5ySanYxbxRMS0 Ded3JD8ngg58yuc5kPqkCFPxvtpfUlP2TSicPEXm aabaFKh4ZJulPARgmFwfYZboQFSksisjIHpxBRLt eLyoMLlgRUJkSfneHYudAMVpLEY3RTpib581SXS6 ZTgds4thn6skmZPkWlr8IOGsHgUiEmmjHUxoc5Wo s1qbPQDyxy8kOPN1vLGeiYnmn9K7jSNpUVYoyPXe daHvCGOrWaV4AVwoRO4pau55IERdZQH0nw9xkOAg gZzxbeSmrKIkKBwlB3UyOGDnb597TCZnH3TmHRNi j9U2fzJcTzOjXOGfjND5ntE7OKObTTi7nOVdulF3 azLzjFCvX1ueoB90HyIjzGYiQ7UqcI10KlLcwZUb K2OtpB78AwGwgJPuL2CusD09HcYiwNBkKOPabPEq Eh3omFUgiVGmh7KjbWPgKEjqN70nq334PWGwpqFu Q0tnoQPqitbcrSMbxvzkFWaojaF2XEKpBSGmXAsd XGYxXGZzMjJcbGFuZzEwMzNcaGljaFxmMVxkYmNo VDYtJTrtE5naRiCsTlTvMtZoFERpmRAvbO0yN1l7 n2NpH2tctrGnLcQkBMX1yF2gqVvlvautC0YqtCTv wW0rx1kpMVJyC66keKEglHJrYrRjMnO9TdBpuLWf ZAEtB5EvklBuZtPgEtJ0YoVtmPZawT== MICROSCOPIC DESCRIPTION (test code = n6hsnXVoMQJvaVQrBwLpTPReXYWzr9 [place] [address]) VnXxCpJgSmNzGnowzHPoQYBdPeEyl9yjh713tZXg l3zmQKRdHzK8lTUbWSQvoVFhK791p1xwx2uxfhEe pVH6PNCiTCP2PPrzhpSuwgX2GVlphTEmOkN6YSdp ifVuLSdmvtHbluNbOio2WGStY666FGR6pAjuu3hb ROG8VLDvTQZeKmZvAi1bbYAkO657KFVfGMPXTYAz fOt0FWPeppUhcfXcvZLIh100X191i0gmUDQspkEe cObVqeajl6zpY887JOGvmKPgrrBmApYhXPUrsYLk uMM8XUVeVZ4wzldsNjSqDX9brutlHkTrRL4ohsl4 ZfJqQI2wqrqgGjOlWQijHZLnyhtbPHJfx7Dtgcan QO9xA3Mqn6U4zO1mdHKvRYVajSBvCcAyTTBqlt4v eWJlNYgul9KxSAQ6fyL1jYQuxENaESGxZQ96Dbnf a0AmYikbGWF2GJFlxaGhl5Yes1puKbWokeDdS1jv S4OdKAUmLCTzBSRvKuKtmuLdw3Yrk0NaxUWzaLb1 f4exPUUxCXHqiSdll1ocMRZ7PABzE9D6pNIbm5gh YTzvBBEtzAH4vkmuWLjrYKRqnjT2bikvQNyzIVGf zVZ6xmpoSDnkECNmCkP5erxpJBkxKGKhCAI6RBxz m465UVP0EWjpSgofDZjrRZMjohXfahIseHozCZJp JWQtZRzmZFSbMNosVFWgKSReSnBtbPwnaDulwN3w ZoVsAsIeFSehTM7nIMZsO7ftlMSjYFOjQPLjH7dw QsQewF5wnXxhCNlydyUfCJFneeJgef7zRC4jeSKg fQ== SPECIAL STUDIES (test code = 3376) l4xkzLBaYZHueTFyTpCxOEKgPAMbn5qk ZGVmbGFu BrAnVjCtSgQiZssahATiCBKiOoOza1tif320aAWy s1gpMZOmVvA0hGJlQOZboNTgX521ITHuNHjce8bf e9ZbOPNgwYIme6Y8NYVLGRdlEdDpF212NMHjOGrh n4bpx1SeXKGcmLJys2Q2FXXCkdnujRx3eSeaD21b a9L0RuctU1qrIMOjXFWnN2GiMT2rOXRbOdp0IEV6 FLN4OZQaQKGqV3DgJY7mRZBvqHAsODq5d7zyqYtq JVQsMVL8n1asNLfmdbP8NE2hyc7vdVy1t2kqffDr JUDaDFJivQMPMYZoB3MznSyhIe3nmXr0i9hpHznu pdD8wGIsKuGvLvLiPQqduCNhxbupOPTaUXL2uDST CRr3R853p4ojALZceiYpeWlLixdij4vzA451KCCe tTSvpnAmTyFhPIPoyPPlmNW0XDZyED3qawdrEmXj UO7nhrkzVcNqQI7hzyi8LoYpER8ieohoOpLiIYay VDNgrdpgOXVxe2QyfrceUN1oE5Por3J2xO0urWAh JHWfpRXeSnEsQWKmrc6olWTmJZpgGOD6ZYPoyyGt f8Hol1afOmUfqzVeK3tiM9DpUOXxURAqDDToZpHn asZos6Okz5PkbYPpsTl7g6byLWQdASHqvLkia8oz TBX2CGIiD9I0eDBea5reGYzlFIWwbWE3jhxdTSmi USUbyqO7bojgWEkdVHZfkWU3amhyVOzbKHVsMiT4 pfdvGFmpQHIeHWR2AJowg152IKB7NBjhRzlyKPqc XHBnbmNvbnRccGduZGVjXHBsYWluXHBsYWluXGYw MHCzVdBtpGwtxIymeT2cInUlFuYsYwqfNT0nDGIu X8jzmYAuZMFqCKIaM8txZzKwrN8osQjgDYxiXtYu LtAiXgTQeTStsM48OBQzmsE4BZKzj29cu3IrfKqx viQwXURkJPzmP8j0SSWtEDRvRCY1h6Hvu6MkyX2z hU0fzEoyfB7ayQKwvHD9xfgrj3Bnx8NrC1chwUTx dGFpbnMuXHBsYWluXGYxXGZzMjJcbGFuZzEwMzNc uZkmaJpgPOnrAwIdHIEnPFzaN9kdKhEmX5EyFODc LsLmuXRwP2ptjGYjMQYimgqcrBGdjfcjNJpvjbOm LMrggcjiWPGoELqvQ5xzCjOeIXAjgNxcCOwbr0Um UUWkSNAxXbnztbLdSLFcbmIfl5vyK7zdOFKoJZR9 ZC5lqtHcNvMnVT8btO08g8Wev66nh11hpQ0avHZu boWxL70iwMWmfGKdq6AtXVEaccAzfDL6FCIdGNrb djcrc1g0sCH4gICqiMSimMJ7jLYctQIyVHCDvPIt MDSxx417op8zLSTwyBYkxbIhpW3lNJhvdpsegYPh ZX8yLOHzNQHyLPViGZ12tbPwHX3irJEmh4bsapDm zXWsb6OvzBF9SAKptITdfxdpBu1dRJ54XHGuIQhx oJ5ydLFuqfEtUL8fPC7aQ3L1yPPpLZVxzgSnu4ih CXfzNT1cPUFciYhtKdwmFZShJOFoyaHdbHU7IXOq dPgihZ3iZfVuBjDeTrrjUG9tTWPnE7iayCLkEFTt UTVjK3uuJfFloR6znObnBEphFiBiLzJtXqptcTTu bIraNQFmjPyjbU9qYkMjNyEvWgqyGA1pVWPkA1vo eWPsFXGmLLOzW3axIlJhcU1poJwbVJjmQgKkWbAh MiAgXHBsYWluXGYxXGZzMjJcbGFuZzEwMzNcaGlj hDqzQWwfOaIiGCRzKBalE1pgXnSiJ8WwJXUhCzSv rYLrA3xnuNMuZOUqUDcjSRPmUDHrMiMoyZXnBqNk LrFhnWxjlMxuVPquOoStBTNtJAbbV6aoTsWgX3Gz DQFbIbVxSX7kdD7scQeuzF8uwYMfaWQ7yswhlBNl fJ2iC4TfGLRio4Nagoehj1AxGWZzneXvcs4fOJRg kZYMSMoky2GfO4OoCQk4t6YwiKdpvJ1iJsOoRkDq TgssML0tZNIdZ8bcfQWvSPIrGMXaW6ihEnQqdP4o pKniISldGzAfLhAfAeg7YVSbAnKrWutvTLIxWDyt XGYxXGZzMjJcbGFuZzEwMzNcaGljaFxmMVxkYmNo LGIiNQbeY3dnKlPeN1TnMDIoFpNrzhOPXAVhK3Ge PJFtxqFgjpwiKNB8lC6hv3b5CTnvZq5fQMSonqnq r1tbinPyiJIrj6AjNLHecoAwu2JtSPMywpFzsAZh PONxicFrro8fegMjQVYrZRKuK3TyyxqncCeifzU2 ISCcRSHqxVUciMsoCIIqNBj3SMytmeNwh5IfHfUj rtYfmMNylfXiZA0mMXZslYJtocAlBMC3JQHwAHMP AaLbFUPlt3HtMC7xTWNhpUnbLRLfsW7aa4ImEMEi j12fBUIeOBDSVHNixIQrIFSurNAbbIrsAEOfyBly lRAkeEMsCVGrRQHoKD7aLCJunkPpdCQmp6FkrDYy hsRst6HsxhBtNNSaPHQ9LgTHuLFcwOTbpOEyspV4 i7XgKDEjddOxoKcilCYxqXLkxHOfr5Tfxf1sROGa u3pdiOpfRE5fsONpPRLcRMdwvzWpGDSsjeTbgvLk o6VsA0Q0nP9qDRysf1FpXy2fHIOdm0ZojlDrWsYL lXfgVBioWz7zXKTwcfpiiARxG2WsdKpytTUfGFWw PZPbVIQdNHRLnPhvbUEkrTBNJMMudpP3b8Z4MBzm wPKiylTwIG38FTUuEN1dqEKxxWNgx2EbEKr2SNEc G2yPFJ13MJevURSygCMvvXbykWItNYWiAKZviyHx qd8btQypsFMex96anET9fKV0UUAadN4cH1NiFKfw Ip3bDWDrwozyeKMccMviAq6qlIbljO1cXmPgDrQi QovuUR0kITTkP1sgjJKoTYTyJKAkQ8vgLpVpqX9d aFxmMlxmczIyXHBhclxwYXJkXHBsYWluXGYwXGZz EjNjdGjcvP8rJbWxAfFlBRprUWX8 Gross assessment was performed at (test [facility] enter, code = 2777) Department of Pathology, [address] [place] [id number], Technical component was performed at [facility] er, (test code = 2778) Department of Pathology, [address] [place] [id number], Professional component was performed at [facility] enter, (test code = 2779) Department of Pathology, [address] [place], [place] [id number], [facility] BY [id number] 11:48:00 Medical Cytology Report Case: [id number] Authorizing Provider: Rene Shields MD Collected: 11/10/2019 06:58 PM Ordering Location: [address] Received: 11/13/2019 09:26 AM Service Pathologist: Amy Pineda MD Specimen: Lymph Node, Lower Paratracheal, Left, Station 4L LYMPH NODE, LOWERPARATRACHEAL, LEFT, STATION 4L EBUS FNA BY CLINICIAN (CYTOSPINS AND CELL BLOCK OF ASPIRATE): - SATISFACTORY FOR EVALUATION - NEGATIVE FOR METASTATIC MALIGNANT CELLS - EVIDENCE OF LYMPH NODE SAMPLING (POLYMORPHOUS LYMPHOID TISSUE PRESENT) Signing Pathologist Direct Phone Line: [phone] signed by Amy Pineda MD on 11/14/2019 at 11:48 AMPlease see cases [id number] and [id number] through [id number], [id number] lymphadenopathyLYMPH NODE, LOWER PARATRACHEAL, LEFT, STATION 4L EBUS FNA34 mls in cytorich red; 2 cytospins, cell blockCollected: [id number]: [id number].The interpretation of this case included the use of immunohistochemistry or special stains.Control Slides Examined: In-house known positive controls were evaluated along with the test tissue. These cont rol slides run alongside of the patients sample show appropriate staining. Internal positive and negative controls when available are evaluated Immunohistochemistry technical testing was performed at [facility], Pathology Laboratory where it was developed and its performance characteristics were determined. It has not been cleared or approved by the U.S. Food and Drug Administration. The FDA has determined that such clearance or approval is not necessary. The test is used for clinical purposes. It should not be regarded as investigational or for research. This laboratory is certified under the Clinical Laboratory Improvement Amendments of 1988 (CLIA-88) as qualified to perform high complexity clinical laboratory testing.[facility], Department of Pathology, [address] [place] [address], [facility], Department of Pathology, [address] [place] [address], [facility], Department of Pathology, [address] [place] [address], TZBF NEEDLE ASPIRATE BY [id number] 11:47:00Medical Cytology Report Case: [id number] Authorizing Provider: Rene Shields MD Collected: 11/10/2019 06:50 PM Ordering Location: [address] Received: 11/13/2019 09:26 AM Service Pathologist: Amy Pineda MD Specimen: Lymph Node, Lower Paratracheal, Right, Station 4R LYMPH NODE, LOWERPARATRACHEAL, RIGHT, STATION 4R EBUS FNA BY CLINICIAN (CYTOSPINS AND CELL BLOCK OF ASPIRATE): - SATISFACTORY FOR EVALUATION - NEGATIVE FOR METASTATIC MALIGNANT CELLS - EVIDENCE OF LYMPH NODE SAMPLING (POLYMORPHOUS LYMPHOID TISSUE PRESENT) Signing Pathologist Direct Phone Line: [phone] signed by Amy Pineda MD on 11/14/2019 at 11:47 AMPlease see cases [id number] and [id number] through [id number], [id number] lymphadenopathyLYMPH NODE, LOWER PARATRACHEAL, RIGHT, [id number] EBUS FNA32 mls in cytorich red; 2 cytospins, cell blockCollected: [id number]: [id number].The interpretation of this case included the use of immunohistochemistry or special stains.Control Slides Examined: In-house known positive controls were evaluated along with the test tissue. These co ntrol slides run alongside of the patients sample show appropriate staining. Internal positive and negative controls when available are evaluated [facility] where it was developed and its performance shahana racteristics were determined. It has not been cleared or approved by the U.S. Food and Drug Administration. The FDA has determined that such clearance or approval is not necessary. The test is used forclinical purposes. It should not be regarded as investigational or for research. This laboratory is certified under the Clinical Laboratory Improvement Amendments of 1988 (CLIA-88) as qualified to perform high complexity clinical laboratory testing.[facility], Department of Pathology, [address] [place] [address], [facility], Department of Pathology, [address] [place] [address], [facility]bcL[facility], Department of Pathology, [address] [place] [address], WPRR NEEDLE ASPIRATE BY [id number] 11:45:00Medical Cytology Report Case: [id number] Authorizing Provider: Rene Shields MD Collected: 11/10/2019 06:46 PM Ordering Location: [address] Received: 11/13/2019 09:26 AM Service Pathologist: Amy Pineda MD Specimen: Lymph Node, Interlobar, Right, Station 11R LYMPH NODE, INTERLOBAR RIGHT, STATION 11R EBUS FNA BY CLINICIAN (CYTOSPINS AND CELL BLOCK OF ASPIRATE): - SATISFACTORY FOR EVALUATION - NEGATIVE FOR METASTATIC MALIGNANT CELLS - EVIDENCE OF LYMPH NODE SAMPLING (POLYMORPHOUS LYMPHOID TISSUE PRESENT) Signing Pathologist Direct Phone Line: [phone] signed by Amy Pineda MD on 11/14/2019 at 11:45 AMPlease see cases [id number] and [id number] through [id number], [id number] lymphadenopathyLYMPH NODE, INTERLOBAR RIGHT, STATION 11R EBUS FNA33 mls in cytorich red; 2 cytospins, cell blockCollected: [id number]: [id number].The interpretation of this case included the use of immunohistochemistry or special stains.Control Slides Examined:In-house known positive controls were evaluated along with the test tissue. These control slides run alongside of the patients sample show appropriate staining. Internal positive and negative controlswhen available are evaluated Immunohistochemistry technical testing was performed at [facility], Pathology Laboratory where it was developed and its performance characteristics were determined. It has not been cleared or approved by the U.S. Food and Drug Administration. The FDA has determined that such clearance or approval is not necessary. The test is used for clinical purposes. It should not be regarded as investigational or for research. This laboratory is certified under the Clinical Laboratory Improvement Amendments of 1988 (CLIA-88) as qualified to perform high complexity clinical laboratory testing.[facility], Department of Pathology, [address] [place] [address], [facility]smL[facility], Department of Pathology, [address] [place] [address], [facility]xqpixLivermore [facility], Department of Pathology, [address] [place] [address], Rpsmqs [id number] 09:47:00 Test Item Value Reference Range Interpretation Comments Case Report (test code Surgical Pathology = 104) Report Case: [id number] Authorizing Provider: Rene Shields MD Collected: 11/10/2019 07:26 PM Ordering Location: [facility] Received: 11/13/2019 07:43 AM SERVICES Pathologist: Janette Mao MD Specimen: Bronchus, Left, EBBX, Reflex Genetic Markers DIAGNOSIS (test code = [id number] 3220) uZzEwMzNcZnRuYmpcdWMxIH sqnyNlSPzjp3TcU3LvPhGpL FxhbnNpXGRlZmxhbmcxMDMz BJT0fqOaDLKlRWmbWYVdFOe uOe1cpXDmnMteXqIwWPCpf6 ssymBCwndrvWq1dQcjF38hz 2P2SkxfE8hxSDQgGTMtK8Da MV6bEHOxAdk5BWI5NDD4EAA wVIUtP3SsRF6uPLThaHDrDN i3r5vjsOugMRZqLIV7p6gxW DhbexLbRL2fzw7yuLa0y2nv zsQiWJGwUSPeqZAXCAZfY0V caZhnZu0lhLw9sAkgDuauWE G7Pcs7XW1jbi24mdo9tNzaY TOjuojoUtU1DYpcDVRpmahr IZb0NToqQQLsgQliIQsnVMB ncjcyMFxtYXJndDcyMFxtYX HgHldaIGrzOVDqPUA3ZAttt 401KIN9DMzzd7oku2iccRFk Mwa7HYWmFsGwMzjwRInba7J fz3lqYSSray6oWAL4yHOpyE vyp8E2fMTrYLHauDZvkwYpK UFwCdA5WMouAS8giw25PSAj YER5yv0nfECduQomooGqtKI iTDnyU5ZhRMFor557SPHdC0 McEGEjh2Y2jgNoHhLgGFXbq GT3tbK3SSJqBNd4oFVzafJ4 glRymDVbV9ckdX38AyVraYN oA0TdsP93YxQzpWLzK3ScmH 55PeLunEUvQ5XasE47LkFjl GRkELVgxCTgPc0izDForWUe o2NbhOPvSVrcI53nj849AAU lznRkJ6kmfYXvzqpusLFxyv uxFYfsalV1CLVnEOGzDOlcD GYwXGZzMjBcbGFuZzEwMzNc aGljaFxmMFxkYmNoXGYwXGx eS0ywHdHuAkTqGYixFXKcGD 4gQlJPTkNIVVMsIExFRlQsI CTBWG8OCi7HT8aGIXprNlzR IZHTFwehXHYyEFMqIE2bP2U RPG6WCHIoU5XDMMFKPPSTZV 4ZFYHqAM1PLAQQZHELMUofY XyTRjGDQW0VFYQTOYJzTIFa vq52RAS4UsCrh0C8IVP9OTJ lROMuk9yoSMLxaBWpFaUbQi NcZnRuYmpcdWMxXGRlZmYwe 4mxi446tNWof9aaUCXgPyJ0 lNMjRNSwhTYqU237CIChWSd rp4yob5NfRKXxqBRbe5Z9WT ARhpmbqKh1dKnuE91fz9J9X mchX5hjHEYiSGAdU7TfMX1h SKQmOsp5PHI7YYN5EKVrIXO xY3XwAG0zYJVfrBCyGHs6s4 ytiCqqGVFrIDB4w3gwHHpxh vKyTJ7gxt6glTp9o9ggunAj ZCRzACPfgBGDMOLdP5YrwRj lXs1ruYi2iRhoGpxaIHN9Xf i1JL7xon23wwg8dOjmPYUzs zaiAsU1HDzuLUMbmmxhBIs4 XDcoXXNvyJR1VGIidBAqL8S eFNSrFD9mpwc7ONM6MHpoPM SyByG3KLEfoVNhKSQctRhoQ Zuph890PGI8YwQuDA4wR2Zu m5S8xW8teNHkWIBxjWSgPpA dQQJeii1ixYDsPHirg6FqWK A4npE9hWLwmMFnDABvGkV3M LgkDS7fvs43JDSzLEI4iy3y gICioVtuwnSvtVOmBQkjL8R kJUPoq739HTUsZ1LlPMScv6 B1nwZaQaGtHUYacJW7rxJ6P QWfOS9pqydrk3wdYBfhJOwi ZMRplkR6jjX3IEAoiACvB9D itU4dAZFmMI5kyxoyj2kwOH I7YVntZDWfXQN7DmXfXZExf 2Gcnlq8YtDtz9SmaWCrCJcg S82iy662DNOzanRdM7sveST yakatsIHtnhulBMmktuK4IV MgAJxttxemUIQfOJojM8hsY bShJIHnjBlxCQydr0RcMIHv XJLzAbLslHBhMRDzLqv5GFW dlDVsRPFuJqSpT1rjtybhTg AZWTYkr5zjM9njrASMtVSfJ 3QgUGhvbmUgTGluZTogNzEz ZRb6YK36PLffJTBumr70 CPT Code(s) (test code h0ppaIVtRWCkdMQaSqVeJPS = 3351) eHZUip3qoZYSidYJjLpIeFs NcZnRuYmpcdWMxXGRlZmYwe 2omh925eDWuk7qcKONnUjZ2 qLPkDBNimJAqE768g4mys4j aqqJmmJK3FDJlWOZ2GGelnp CsfhI6EYayxADqWlL9VYmtt gCsPXeeukHdxsLkXbi1EPPx E869XDF9eTnav3vqCFW3JUU qBKIgAgXbSl8utXNtQ832XK LlGJBEYYQlcMc4JYAziaCzj sEpmHZTn729S193g9ywJWUh kbJluQhNprrby5jbD854KQS hcGVydzEyMjQwXHBhcGVyaD Y0BHFuFJ0aqmxbJzJxPG7oc gnyEnXnEM0mocl9LoNkDW1x cmdiNzIwXGhlYWRlcnkwXGZ mj1XtaukcAY2iI7Ikv8B0nO 9maXRcZGVmdGFiNzIwXGZvc q1wkMUaRDamg9QuHTG2kkL9 xHThpNRbBSGkLI95Mxjtb7E aPzpoUVV9OVMalsJes7Axf2 owUsUnraYhQ7pmW7FuFIPpU CXyPQEkIkWlftDgk2Zbp0Hq qTStjYk8c9igGZPcAWEieRy sg7sfLHM5GOPnZ9L0pNOni0 dmLCcwQWZgqED5vjvmPOfwI PEfauU2ypenGEuyDWZkfHM3 bgkwTGbyEMBcAhI6ogrkPHo gYXCoSWF9APymn054WRP2MM xzYmtwYWdlXHBnbmNvbnRcc GduZGVjXHBsYWluXHBsYWlu XGYwXGZzMjRccWxccGxhaW5 mIqOrTqDlEVgvFW3tSOEpG8 zajFNrYRHiVLSiQ0obLjDgk B1sxQtxPFznhoZlOZc1AxD0 XHBhcn0= CLINICAL HISTORY (test k9uoxWRdYIDbrNJzViDbYTA code = 3356) wOKCtj6dhBYHxaHHlLgUcAm NcZnRuYmpcdWMxXGRlZmYwe 1jnd330jDYzb6iyRIBnYwY9 oPCaIANweZEmM951RCPgBVa ew0zoi1HtXMTbxHEsp2W6HP TTytaynRc8iHjjE79rw5I9Z xniU1riRFRdBBLfC5FbRC5y GSNgIyh1OEU3KKV6GDGuGSX dY8UkYY3mRPIhnTCkPOd4l2 ipuZghEOMuLTZ2y3hcLKpmr eRfQF2ipi0xxZd3a5ykezHi IRUkHQFndWHNTCYcY4IunTy cLb0vnVh6nJniWiekBIM0Ws v7FS4rra91jgh9fUxwZXTlp bnaBcT5CRbgOLUnyoebRTd4 MFxtYXJnbDcyMFxtYXJncjc yMFxtYXJndDcyMFxtYXJnYj itHMxnOFBeJXS7SUkte151D HL9ONhmy6sox2mddODbYhp4 JNMiHjGyZmakRJtit5Ivd9p xHFAxom1pBWC5cSBxiTtai1 Z6mNBvTJDigYAuynMwWTQmS vB1OHclWF3pnx98XVKvFJP8 nr9pfGGulAtwsoZjpDDdARe iP2RdWPJkh956FJPhO3FwHS Aqb1B7ziGiYiMuZOUhtTU1l eT7DPThBPi8pEFhofH0lvTc hVZhL3fhvD16PqIrgSJrX0Z acY69ElYoiXBtB9DapY13Ws NjiMEgW5StyF59MbDykHVxR ITbkGNwTd8zwAWegYTgl2Nr iNEsJRopX76ck325OTWtmxH xY5mpgMRcdkkjxNFiwfiaQV yzioR8HGf4alIhmlabqPpoz GFpblxmMVxmczIwXGxhbmcx LLKoIPuzG7suVgDzVGWzyOu aKRzvs3TrEWBrOFFfJiOrLF VfgMgnzACjKQ7gg7QjoXNov Q== SPECIMEN SOURCE (test v1efdZToWNPfhIReNxGlVZT code = 3377) xDPFzr0zsYUZyiWBaYtUnMk NcZnRuYmpcdWMxXGRlZmYwe 7cip801kPApa1pmCDEdOsX5 wEDcKZFimFMtH319m5srh1m cmiAjiDQ4VUAxBGS6EFablu KtnlM5WDmowZLvKeI0OUmxx jCzMLxekrTnfySmYyi4BWVf U787CTX4nUkqr1dvEAE1SPA bZBImBkAjZi2eaKMpN440RX VlYQNGUSKgxXk5WTSvseOmx lTvpGWQw085Y806a9czWXTa svVvtPwLgjxhq8aiB211IHG hcGVydzEyMjQwXHBhcGVyaD D6EWXuNA0qjjctMuKlQX9ij hgrFhJpZR4omui1NkTzOT6i cmdiNzIwXGhlYWRlcnkwXGZ nc9SpuijxMP5yF3Byh5W1zN 9maXRcZGVmdGFiNzIwXGZvc q9voSXgUWyzn4VsDHX6jdP5 mKXlaMYgCCVwVF38Tgkqs0S oSqrpSRR0RUCfojCij5Bep3 icVfYcqaZxY0yjN8XvFFWxZ IFyYKZoBwHmwiTtj7Vhy6No pJOewBf8q0xmBTDmWEKprKj qs9ssLFK2OCNdC3V9mTHxw3 hdDIriHFRitZJ7nybmRXzmP LNkgwE7glapOYkpRCMmcCW1 zbmhFTfcVVYhVtX8bwlwZLq yOTJzPSH9FJhky397ETA2WK xzYmtwYWdlXHBnbmNvbnRcc GduZGVjXHBsYWluXHBsYWlu XGYwXGZzMjRccWxccGxhaW5 dScQzBbQxAGvxBQ4xMPXzE2 dktGPrKMLhIEZiB4zjRdZxe K2fiJveVZloktHoCVAqt83t gCNiSYSkIWM7IGGuyb6= GROSS DESCRIPTION u9kbiGRiLMGivJCsOlHjGAA (test code = 3366) nAQZqi2zhNPNfpUQfXfEvMd NcZnRuYmpcdWMxXGRlZmYwe 0inq114nUVdx0rpSJBbJaO1 sAUqTOKewZUhH366DNXdWDe ty5uys6KqGTKxdOQpm9W1SH TVaggpjFn0bKhiP43pg8G2E cdgM3uaGSRhZOIrK8KaFM5p GXNfSxe0KBR1SIX2WZPrSHF gE4SbMD1hHHKqoUPbLKq7o2 tbdVbwYUVoOVK4g0zaQUehr eKzZZ8xjl6ygYp4b5rweoMm QAUfTVPmaUAUFESxE1AnoKa oDx1dmWr6zFkbWdazIAH3Hs c2FA1onj88aoe3fVonJXQgg aksNoY3XVnaMDRmtdjyMUc4 MFxtYXJnbDcyMFxtYXJncjc yMFxtYXJndDcyMFxtYXJnYj nfXOieTMBlLTL9YVfxi821V NY6BEucl4sco0exaNWuIyu8 YYFgAjOsIcnwYTapv2Fsj0j sSTZotd1dPEP3sIMsrPsjh8 B1cSXjTPHzkNEebaUyWITpN hB5FRmsXH5mju14GFIcDRO4 gc0nfXUudKozlyPbdDVePIq pQ4RtANAkj465BYSuC2OfRO Qkl0T9pqXoAlXjRZZucAN0p rS8OQHkMSy4uIXzpsP8rkVc oKHzE1jhxG12YvCicPLqT1Y atO83MpFarUDyI4XpbT51Yj ZfaFSjQ6QemP25OqUazMAxL CPijSCdXw0ynMEoqRBjy5Fy rCBpNQnwV09aq899QBArypO yB9tobKSxxwyusXSthvkbED nbymA4NCKcKOTxTLlvVWYwJ GZzMjBcbGFuZzEwMzNcaGlj lLwyOIecSiJgGUBdVZotD3f cZjFcZnMyMCBBLiBSZWNlaX IwJINbosYez8NfBEszbdDwP ISfiZdcZRB2qUCtTUByYFEn SPPrQX70FSdjBNKehbDvCBi gbWVkaWNhbCByZWNvcmQgbn VtYmVyIGFuZCAiYnJvbmNod MWcVLjnKvRmPYcuPMWnRM7b SIglLV70FZcbQK6bPGVqVKf hgbFcvNadyfHxosE7EWOlnb rlg67xfBH4tASzvAAqOgNqU 07bwnOqu2uhG5lfkBKxt2Vt jGv3yGOaPRorFRFbsR4zoK3 cRWSzKDYloegfNJAlU0bztR HyCUGLmjJ5mgleKOgVNLVIY SAoQVNDUClccGFyfQ== MICROSCOPIC c7cfnENeLPMooGCfKaCgUPM DESCRIPTION (test code zMHSni0iiEGSlrBLzKyMwBu = 3371) NcZnRuYmpcdWMxXGRlZmYwe 1hdo374mAXvr4emITOoUaG4 eBPqLSCtlACtO974v9thg9x avhYseHO5TMXjPAJ2OZeyzk DfnpW1FYzqtGXmYhY3FIkam tAeFKydufPcykHhXxm0FBHu Z731XVP0bCeiu4zkWYL4VRX wVBTjDuVoMq2iqJDeX959HV OrKYXWJZEghIw4JRJkrhAly rBbbVVAm677S720g2upBVWk leDszOxKxojcv3oaR607NCZ hcGVydzEyMjQwXHBhcGVyaD M3TSPlYW8lkdzhZaZzYO1wo yfjYzOtJS0wxhy1TaLxAM9u cmdiNzIwXGhlYWRlcnkwXGZ tk0HoztllOO0aQ8Mrz7S7cH 9maXRcZGVmdGFiNzIwXGZvc n5cpBSrZFyti3ZbYHU9ecJ5 sZRnlQRrFKWoNX67Ezywd2S yEahkYWX1OUIivpVjq6Dxt5 bcFrPvowWmR4ioG1TdSMFlL JQyTHUkTdBlodUzj3Owg8Kq iHVcxVk1y2kbNLYeVBYyjYh im8jdTGQ5ERUhS4C2eVGjg0 myJNrlUJKvjRK7vudfBRhzX CQjcjT9nfzzSDjzQVZuwQB8 aqdtLSxpBZRbQlP9kwqxKHd wVEUdDPH5TNgtv572KWF8QM xzYmtwYWdlXHBnbmNvbnRcc GduZGVjXHBsYWluXHBsYWlu XGYwXGZzMjRccWxccGxhaW5 oHvEmOmOrBVadMI3bGXXwM6 slrADlPPGgUSXzQ3roVcZbm A1yvYxaOKrmcbJqLPXfgmLu xn8iAF4nqAGorE== SPECIAL STUDIES (test k3ewwHKkJOIndIKzTaUqLQE code = 3376) zHSKfu6qpLCXmqLStIrEnNv NcZnRuYmpcdWMxXGRlZmYwe 6krs040iKFvw6luCBXyCtT2 aURwTTHphGTcS389PHMrOCg hp5qrp1BeUTMoeSVlu3O5IR LYEOjyIwWhU545MOCkCAdel 6yjs2XzUXZwpZUdd9K1GQVN qveamGn9tUnnL68jn5G3Mrr pV0nnHBIfPYSeS5UvOU8bLU MjXfz9CYK6CSF1FXSwZCAyC 2MrCV0mAKYogGSySYj2m0jy kRlmQDJxOEH6l0ozQOmqncW 8NM5rcg3biSq7j7dwyuCmIM NhRRYprAXBFQYyR9YnfSkjT f9etFf6h6bdHjrmjnH3lHPw ZjBcZnMyMFxsaTBccmkwIEN mKCI4bZFKTQp2C365f5xbUO QjeoSakFpBemera1jpQ112M HBhcGVydzEyMjQwXHBhcGVy mCL6LTUySW6tumdqGoFqKR1 elqbrYtIoKL9hhux9DgPnPF 1hcmdiNzIwXGhlYWRlcnkwX FRwm3MfebcbYN9tX6Xnz0V5 qD9fqCRyPEOlkDMbKiWeQGW cmv1vrZJlDEqhCRP6ZFZrqb Zfr9Rhu4vbYdXdqaUjL7xeR 2JyZHJoZWFkXHBnYnJkcmZv t3Nkg1CtlQSbrKp4p4anQUJ hPADlkPopc5lcXAV6WKWvJ0 O3tEFkp8apNEowQBNlqKF1i ekwATbyJCRhslT6jirmJOgf OSFgqMZ9fsouHKbcLPMhXqU 5ytkxUFbhMSWhPZH2VTccx6 59IJK6GLnpLgmkEGsiJNEcd mNvbnRccGduZGVjXHBsYWlu XHBsYWluXGYwXGZzMjRccWx smLbkkR0bEmJzHxXdDoviJR 4vMQYvX5nkkLRuCSBsJJWuQ 3goVnYqiC0uxOntULasAoAv UxYyAmNLuDUtaX90MUXdqnY 8MKXem13lh8UurTukjbReBK EdOHhgL9u1GTNxIRSxCDO4e 7Tcj6JdaF9ojG1xhLbbjK9z zODcqAD3mrwkh5Ikw5ZdR3v hbCBzdGFpbnMuXHBsYWluXG YxXGZzMjJcbGFuZzEwMzNca GljaFxmMVxkYmNoXGYxXGxv S1tjYqMvT0SwDZTdCdMlsZF pU9unzNLrTWEovttwgTKbun xmMVxmczIyXGxhbmcxMDMzX ElmG2lzQbHeJDXbfSkjKYdz u3UqADAbNWFlPayyxxAqNLU qttQzs1wnS3hrSSNzWJU2XN 5zaqVzLeBcGH2ggM54d9Tgs 51fv24kvT0dlQBewiNdX41f vXGjzIPww7WcMSTatcUfeNS 2PEBsFNxmhrort8p5zAE4iR UxwCThrSZ7nOVtxXNeQCSDr ZEiTXPkf314ph8lAVYbiRIi lnCxwI3cZDoivjobbRXwNV7 hGKQeUHCiMEMrJI69xfOxPQ 6mkZVgb7kkxqNpuGSvu4Ljx AU5VVBocXLbbttoZf3uUS58 QQKfFHwdmD1bxNBltxQtQT9 wZL6bQ9B6nOMtMKTtgeLgd6 eoXUkpLA5cWCUvdZkbDfspB NUpSZPrifNdjTG0GZCgpFrq kU4nVpBgUyFvMvxbQQ0tFUW wE9opqBZaHLMkGLPgZ8knGo LyzT3irIerUUkvFoDyOlWcZ updvLVkyYcuHZFchWfrlF6s CoPwAbEiWxgzPI9gHFTnI7c jtQOxWUYaSCKoB6hzRkAgxI 9jaFxmMVxjZjJcZnMyMiAgX HBsYWluXGYxXGZzMjJcbGFu ZzEwMzNcaGljaFxmMVxkYmN xXUIeCLscM1ewZaUjL1DqLJ PuTnVrrNOnN2tqzFQnOLAxX WluXGYxXGZzMjJcbGFuZzEw MzNcaGljaFxmMVxkYmNoXGY dKKczQ9ftGyZjK1FnRXRlXw BjDR7ftR2mbVgjhP5ebXRcw DP7zctceADgcE0vU4DvSSDv j8Uysifmm7YsQPFamdWysp0 bPKPgiYNIUUobp5EmH7XfPF u8t8YfeTqaeA6sBzKdDuCmJ cmmVW1mVGXhE7larEGnMHHu SPRzY7wuRcXzaT3lwZpfPRv gVsVdBzMuJmo9QUMnFuEmPa kyXHBsYWluXGYxXGZzMjJcb GFuZzEwMzNcaGljaFxmMVxk CxMhUKXdITlvN4uwRtXoX7C gPKTqEjMsmfTDYDYrL3DcWL XgjeDwqgsrIRB2pI4wz9k2P IynPz2eNRIhnrfdz8jfsyHo aHKwv1AbSVHjwmRfv9KpDFZ mwdJlaNUbTBRzqeCrhx7msp JlHYOrFVDyY8FpiajzdUang sO1SHBpZZAniQKjcTfpEGUa SJb7BIycihLxv5XiWsFfyeW jtLJtodBpHO2jVJRoeGDznu SvXBZ3YFVzTKSVMkNfNBJck 4DuEW0xMVHcdYpjFKBirA0q j1MmLSJap94fPWOeQONZAPE gaGFzIGRldGVybWluZWQgdG wczNGibXWgGKKkIDSxUR9uE VTwypDadFQpz3ZqnZHqnfAf g1BoepZvRJFbKEG2UjHXdNQ toHHejHFfodE0y0VaHLPowg ElbKxedWKdzSVrxJRqw4Kms b0jSZApa7rpjLrwZF2wwGNf ZSByZWdhcmRlZCBhcyBpbnZ ba3AaX0R2jJ7sOUres4TsQs 7yBYTan4ZulxEoPuMGfLbbY KviPi9cIPGlmksdoSRgS0Xq dGlmaWVkIHVuZGVyIHRoZSB TbEfxlEAclWIFPEDulqD3j3 O3LXnctWGhvrTxRF44HVGsR J4gqWLscQBwa6OsKHp8ZALs C3rAYQ43HVqrMMXwtNHhxEn zwUTyHFQgLGRawrKcut8kuE mhjZLuw57spDP1sAX2PSAob K3rO6FaQZolIe4qZFMyhbos lKQbcXqjZv5ptNwiwZ0eSuI dOvSmGdotAC6nMLQtF1essR SfYSHnHELzC5riJyWmrX3bo FxmMlxmczIyXHBhclxwYXJk XHBsYWluXGYwXGZzMjRccGx lgY5nEoEyVhTqKDaeVEA3 Gross assessment was [facility] performed at ([facility], code = 2777) Department of Pathology, [address] [place] [address], [place] [address], Technical component [facility] was performed at ([facility], code = 2778) Department of Pathology, [address] [place] [address], Professional component [facility]'s was performed at ([facility], code = 2779) Department of Pathology, [address] [place] [address], [facility] CenterT[facility] [id number] 09:47:00Surgical Pathology Report Case: [id number] Authorizing Provider: Rene Shields MD Collected: 11/10/2019 07:26 PM Ordering Location: [facility] Received: 11/13/2019 07:43 AM SERVICES Pathologist: Janette Mao MD Specimen: Bronchus, Left, EBBX, Reflex Genetic Markers A. BRONCHUS, LEFT, ENDOBRONCHIAL BIOPSY: - SQUAMOUS CELL CARCINOMA, MODERATELY DIFFERENTIATED. Signing Pathologist Direct Phone Line: [phone] signed by Janette Mao MD on 11/14/2019 at 9:47 AM883 05Perihilar massBronchus, leftA. Received in formalin labelled with the patient's name, medical record number and "bronchus, left" is a 1.1 x 0.6 x 0.2 cm irregular ayala-pink soft tissue fragment whichis submitted in toto in A1.DAVON Lawrence PA (ASCP)Performed.The interpretation of this case inc luded the use of immunohistochemistry or special stains.Control Slides Examined: In-house known positive controls were evaluated along with the test tissue. These control slides run alongside of the patients sample show appropriate staining. Internal positive and negative controls when available areevaluated Immunohistochemistry technical testing was performed at [facility], Pathology Laboratory where it was developed and its performance characteristics were determined. It has not been cleared or approved by the U.S. Food and Drug Administration. The FDA has determined thatsuch clearance or approval is not necessary. The test is used for clinical purposes. It should not be regarded as investigational or for research. This laboratory is certified under the Clinical Laboratory Improvement Amendments of 1988 (CLIA-88) as qualified to perform high complexity clinical laboratory testing.[facility], Department of Pathology, [address] [place] [address], [facility], Department of Pathology, [address] [place] [address], [facility] of [facility], [address] [place] [address], EBXW FNA [id number] 11:00:00 Test Item Value Reference Range Interpretation Comments Cytology (test code = See Separate Report 2629) [facility] Center[facility] [id number] 11:00:00 Test Item Value Reference Range Interpretation Comments CYTOLOGY RESULT POINTER See Separate Report (BEAKER) (test code = 2629) EBUS FNA [id number] 11:00:00 Test Item Value Reference Range Interpretation Comments CYTOLOGY RESULT POINTER See Separate Report (BEAKER) (test code = 2629) EBUS FNA [id number] 11:00:00 Test Item Value Reference Range Interpretation Comments CYTOLOGY RESULT POINTER See Separate Report (BEAKER) (test code = 2629) EBUS FNA [id number] 11:00:00 Test Item Value Reference Range Interpretation Comments CYTOLOGY RESULT POINTER See Separate Report (BEAKER) (test code = 2629) ECG 12 [id number] 07:01:05Interface, External Ris In - 11/11/2019 7:01 AM CDTVentricular Rate 64 BPMAtrial Rate 64 BPMP-R Interval 172 msQRS Duration 132 msQ-T Interval 430 msQTC Calculation(Bazett) 443 msP Shipman 67 degreesR Shipman -53 degreesT Shipman -11 degreesSinus rhythm with marked sinus arrhythmiaLeft axis deviationLeft bundle branch blockAbnormal ECGNo previous ECGs availableConfirmed by MD MARY, JERMAN ([id number]) on 11/11/2019 7:01:02 [facility]2019-11-10 17:35:00 Test Item Value Reference Range Interpretation Comments SARS-COV2/RT-PCR Not Detected Not Detected, (test code = Negative 54369-3) SARS-COV-2 [facility] PERFORMING LAB (test code = 52321-5) NACHO (test code = Negative results do not NACHO) preclude SARS-CoV-2 infection and should not be used as [...] of the Act. Fact Sheet for Healthcare Providers:https://www.GenArts/Documents/Xper t%20Xpress%20SARS%20CoV- 2/Fact%20Sheets/302-3802 %92AZPJ-NFK-5%20HEALTHCA RE%20PROVIDERS%20FACT%20 SHEET.pdf Fact Sheet for Healthcare Patients:https://www.Telderi/Documents/Xpert %20Xpress%20SARS%20CoV-2 /Fact%20Sheets/302-3801% 94RKPM-WVX-2%20PATIENT%2 0FACT%20SHEET.pdf Performing Laboratory:[facility] [place] [address] [facility])2019-11-10 17:35:00 Test Item Value Reference Range Interpretation Comments SARS-COV2/RT-PCR (test Not Detected Not Detected, Negative code = 3318472) SARS-COV-2 PERFORMING LAB [facility] (test code = 5411511) Negative results do not preclude SARS-CoV-2 infection and should not be used as the sole basis for patient management decisions. Negative results must be combined with clinical observations, patient history, and epidemiological information. A false negative result may occur if a specimen is improperly collected, transported or handled.The limit of detection for this assay is 250 copies/mL.This SARS CoV-2 test is a rapid, real-time RT-PCR test intended for the qualitative detection of nucleic acid from SARS-CoV-2 in a nasopharyngeal swab specimen collected from individuals suspected of COVID-19 by their healthcare provider.This test has not been Food and Drug [...] is revoked under Section 564(g) of the Act.Fact Sheet for Healthcare Pro viders:https://www.BemDireto.OneMob/Documents/Xpert%20Xpress%20SARS%20CoV-2/Fact%20Sh eets/3023802%57SDOX-ZHZ-8%20HEALTHCARE%20PROVIDERS%20FACT%20SHEET.pdfFact Sheet for Healthcare Patients:https://www.Emergent One/Documents/Xpert%20Xpress%20SARS%20CoV-2/Fact%20Sheets/3023801%20SARS-COV -2%20PATIENT%20FACT%20SHEET.pdfPerforming Laboratory:[facility], [place] [address]Gnsac [id number] 09:16:00 Test Item Value Reference Range Interpretation Comments Result (test code = See comment 6463-4) NACHO (test code = NACHO) <10,000 col/mL Gram negative belle. [facility] CenterABORH, [id number] 09:13:00 Test Item Value Reference Range Interpretation Comments ABO Grouping (test code = 2588) O Rh Factor (test code = 2589) POS [facility] CenterType and screen, [id number] 07:01:00 Test Item Value Reference Range Interpretation Comments ABO/RH AUTOMATED (BEAKER) (test O POSITIVE code = 2260) Ab Scrn (test code = 890-4) NEGATIVE [facility] W/PLT COUNT & AUTO [id number] 06:18:00 Test Item Value Reference Range Interpretation Comments WHITE BLOOD CELL COUNT (BEAKER) 14.1 K/ L 3.5-10.5 H (test code = 775) RED BLOOD CELL COUNT (BEAKER) 4.03 M/ L 4.63-6.08 L (test code = 761) HEMOGLOBIN (BEAKER) (test code = 10.9 GM/DL 13.7-17.5 L 410) HEMATOCRIT (BEAKER) (test code = 37.3 % 40.1-51.0 L 411) MEAN CORPUSCULAR VOLUME (BEAKER) 92.6 fL 79.0-92.2 H (test code = 753) MEAN CORPUSCULAR HEMOGLOBIN 27.0 pg 25.7-32.2 (BEAKER) (test code = 751) MEAN CORPUSCULAR HEMOGLOBIN CONC 29.2 GM/DL 32.3-36.5 L (BEAKER) (test code = 752) RED CELL DISTRIBUTION WIDTH 14.8 % 11.6-14.4 H (BEAKER) (test code = 412) PLATELET COUNT (BEAKER) (test 1022 K/CU MM 150-450 H code = 756) MEAN PLATELET VOLUME (BEAKER) 9.0 fL 9.4-12.4 L (test code = 754) NUCLEATED RED BLOOD CELLS 0 /100 WBC 0-0 (BEAKER) (test code = 413) NEUTROPHILS RELATIVE PERCENT 78 % (BEAKER) (test code = 429) LYMPHOCYTES RELATIVE PERCENT 11 % (BEAKER) (test code = 430) MONOCYTES RELATIVE PERCENT 6 % (BEAKER) (test code = 431) EOSINOPHILS RELATIVE PERCENT 4 % (BEAKER) (test code = 432) BASOPHILS RELATIVE PERCENT 1 % (BEAKER) (test code = 437) NEUTROPHILS ABSOLUTE COUNT 11.04 K/ L 1.78-5.38 H (BEAKER) (test code = 670) LYMPHOCYTES ABSOLUTE COUNT 1.48 K/ L 1.32-3.57 (BEAKER) (test code = 414) MONOCYTES ABSOLUTE COUNT 0.85 K/ L 0.30-0.82 H (BEAKER) (test code = 415) EOSINOPHILS ABSOLUTE COUNT 0.52 K/ L 0.04-0.54 (BEAKER) (test code = 416) BASOPHILS ABSOLUTE COUNT 0.14 K/ L 0.01-0.08 H (BEAKER) (test code = 417) IMMATURE GRANULOCYTES-RELATIVE 1 % 0-1 PERCENT (BEAKER) (test code = 2801) CBC with platelet count + automated [id number] 06:17:00 Test Item Value Reference Range Interpretation Comments WBC (test code = 6690-2) 13.9 3.5- 10.5 K/L H RBC (test code = 789-8) 4.03 4.63- 6.08 M/L L MCHC (test code = 786-4) 29.5 32.3- 36.5 GM/DL L Hematocrit (test code = 4544-3) 37.3 % 40.1-51 L MCV (test code = 787-2) 92.6 fL 79-92.2 H MCH (test code = 785-6) 27.3 pg 25.7-32.2 RDW (test code = 788-0) 14.8 % 11.6-14.4 H Platelets (test code = 777-3) 1021 150- 450 K/CU MM H MPV (test code = 62505-6) 9.1 fL 9.4-12.4 L nRBC (test code = 413) 0 0- 0 /100 WBC % Neutros (test code = 429) 78 % % Lymphs (test code = 430) 11 % % Monos (test code = 431) 6 % % Eos (test code = 432) 3 % % Baso (test code = 437) 1 % # Neutros (test code = 670) 10.92 1.78- 5.38 K/L H # Lymphs (test code = 414) 1.46 1.32- 3.57 K/L # Monos (test code = 415) 0.88 0.30- 0.82 K/L H # Eos (test code = 416) 0.46 0.04- 0.54 K/L # Baso (test code = 417) 0.12 0.01- 0.08 K/L H Immature Granulocytes-Relative 1 % 0-1 (test code = 2801) Lab Interpretation (test code = Abnormal 11153-6) [facility] W/PLT COUNT & AUTO [id number] 06:17:00 Test Item Value Reference Range Interpretation Comments WHITE BLOOD CELL COUNT (BEAKER) 13.9 K/ L 3.5-10.5 H (test code = 775) RED BLOOD CELL COUNT (BEAKER) 4.03 M/ L 4.63-6.08 L (test code = 761) HEMOGLOBIN (BEAKER) (test code = 11.0 GM/DL 13.7-17.5 L 410) HEMATOCRIT (BEAKER) (test code = 37.3 % 40.1-51.0 L 411) MEAN CORPUSCULAR VOLUME (BEAKER) 92.6 fL 79.0-92.2 H (test code = 753) MEAN CORPUSCULAR HEMOGLOBIN 27.3 pg 25.7-32.2 (BEAKER) (test code = 751) MEAN CORPUSCULAR HEMOGLOBIN CONC 29.5 GM/DL 32.3-36.5 L (BEAKER) (test code = 752) RED CELL DISTRIBUTION WIDTH 14.8 % 11.6-14.4 H (BEAKER) (test code = 412) PLATELET COUNT (BEAKER) (test 1021 K/CU MM 150-450 H code = 756) MEAN PLATELET VOLUME (BEAKER) 9.1 fL 9.4-12.4 L (test code = 754) NUCLEATED RED BLOOD CELLS 0 /100 WBC 0-0 (BEAKER) (test code = 413) NEUTROPHILS RELATIVE PERCENT 78 % (BEAKER) (test code = 429) LYMPHOCYTES RELATIVE PERCENT 11 % (BEAKER) (test code = 430) MONOCYTES RELATIVE PERCENT 6 % (BEAKER) (test code = 431) EOSINOPHILS RELATIVE PERCENT 3 % (BEAKER) (test code = 432) BASOPHILS RELATIVE PERCENT 1 % (BEAKER) (test code = 437) NEUTROPHILS ABSOLUTE COUNT 10.92 K/ L 1.78-5.38 H (BEAKER) (test code = 670) LYMPHOCYTES ABSOLUTE COUNT 1.46 K/ L 1.32-3.57 (BEAKER) (test code = 414) MONOCYTES ABSOLUTE COUNT 0.88 K/ L 0.30-0.82 H (BEAKER) (test code = 415) EOSINOPHILS ABSOLUTE COUNT 0.46 K/ L 0.04-0.54 (BEAKER) (test code = 416) BASOPHILS ABSOLUTE COUNT 0.12 K/ L 0.01-0.08 H (BEAKER) (test code = 417) IMMATURE GRANULOCYTES-RELATIVE 1 % 0-1 PERCENT (BEAKER) (test code = 2801) Hepatic function [id number] 06:10:00 Test Item Value Reference Range Interpretation Comments Protein, Total (test code 7.0 6.0- 8.3 gm/dL = 2885-2) Albumin (test code = 3.0 g/dL 3.5-5 L 87220-1) Total Bilirubin (test code 1.3 mg/dL 0.2-1.2 H = 1975-2) Bilirubin, Direct (test 0.7 mg/dL 0.1-0.5 H code = 1968-7) Alkaline Phosphatase (test 70 U/L 40-150 code = 6768-6) AST (test code = 1920-8) 13 U/L 5-34 ALT (test code = 1742-6) <6 6-55 L NACHO (test code = NACHO) Raw Material Planner ID - PIAYA L Lab Interpretation (test Abnormal code = 78637-4) [facility] [id number] 06:10:00 Test Item Value Reference Range Interpretation Comments TOTAL PROTEIN (BEAKER) (test code = 7.0 gm/dL 6.0-8.3 770) ALBUMIN (BEAKER) (test code = 1145) 3.0 g/dL 3.5-5.0 L BILIRUBIN TOTAL (BEAKER) (test code 1.3 mg/dL 0.2-1.2 H = 377) BILIRUBIN DIRECT (BEAKER) (test 0.7 mg/dL 0.1-0.5 H code = 706) ALKALINE PHOSPHATASE (BEAKER) (test 70 U/L 40-150 code = 346) AST (SGOT) (BEAKER) (test code = 13 U/L 5-34 353) ALT (SGPT) (BEAKER) (test code = < U/L 6-55 L 347) Raw Material Planner ID - PIAYA LComprehensive metabolic [id number] 06:09:00 Test Item Value Reference Range Interpretation Comments Protein, Total (test 7.0 6.0- 8.3 gm/dL code = 2885-2) Albumin (test code = 3.0 g/dL 3.5-5 L 13622-1) Alkaline Phosphatase 70 U/L 40-150 (test code = 6768-6) Total Bilirubin (test 1.3 mg/dL 0.2-1.2 H code = 1974-2) Sodium (test code = 141 meq/L 499-855 8363-2) Potassium (test code = 3.9 meq/L 3.5-5.1 2823-3) Chloride (test code = 105 meq/L 98-107 2075-0) CO2 (test code = 26 meq/L 22-29 2028-9) BUN (test code = 8 mg/dL 7-21 3094-0) Creatinine (test code 0.90 mg/dL 0.57-1.25 = 2160-0) Glucose (test code = 79 mg/dL 70-105 2345-7) Calcium (test code = 8.5 mg/dL 8.4-10.2 50887-2) AST (test code = 13 U/L 5-34 1920-8) ALT (test code = <6 6-55 L 1742-6) EGFR (test code = 102 mL/min/1.73 [place] [address]-6) NOT ACCURATE CREATININE CLEARANCE IN PREDICTING GLOMERULAR FILTRATION RATE . ESTIMATED GFR I S NOT APPLICABLE FOR DIALYSIS PATIENTS. NACHO (test code = NACHO) Raw Material Planner ID - PIAYA L Lab Interpretation Abnormal (test code = 31406-7) [facility] [id number] 06:09:00 Test Item Value Reference Range Interpretation Comments TOTAL PROTEIN 7.0 gm/dL 6.0-8.3 (BEAKER) (test code = 770) ALBUMIN (BEAKER) 3.0 g/dL 3.5-5.0 L (test code = 1145) ALKALINE PHOSPHATASE 70 U/L 40-150 (BEAKER) (test code = 346) BILIRUBIN TOTAL 1.3 mg/dL 0.2-1.2 H (BEAKER) (test code = 377) SODIUM (BEAKER) (test 141 meq/L 136-145 code = 381) POTASSIUM (BEAKER) 3.9 meq/L 3.5-5.1 (test code = 379) CHLORIDE (BEAKER) 105 meq/L 98-107 (test code = 382) CO2 (BEAKER) (test 26 meq/L 22-29 code = 355) BLOOD UREA NITROGEN 8 mg/dL 7-21 (BEAKER) (test code = 354) CREATININE (BEAKER) 0.90 mg/dL 0.57-1.25 (test code = 358) GLUCOSE RANDOM 79 mg/dL 70-105 (BEAKER) (test code = 652) CALCIUM (BEAKER) 8.5 mg/dL 8.4-10.2 (test code = 697) AST (SGOT) (BEAKER) 13 U/L 5-34 (test code = 353) ALT (SGPT) (BEAKER) < U/L 6-55 L (test code = 347) EGFR (BEAKER) (test 102 ESTIMATE D GFR IS code = 1092) mL/min/1.73 sq NOT ACCURA TE m CREATININE CLEARANCE IN PREDICTING GLOMERULAR FILTRATION RATE . ESTIMATED GFR I S NOT APPLICABLE FOR DIALYSIS PATIEN TS. Raw Material Planner ID - PIAYA LBasic metabolic [id number] 06:04:00 Test Item Value Reference Range Interpretation Comments Sodium (test code = 141 meq/L 077-033 9094-2) Potassium (test code 3.9 meq/L 3.5-5.1 = 2823-3) Chloride (test code = 105 meq/L 98-107 2075-0) CO2 (test code = 26 meq/L 22-29 2028-9) BUN (test code = 8 mg/dL 7-21 3094-0) Creatinine (test code 0.90 mg/dL 0.57-1.25 = 2160-0) Glucose (test code = 79 mg/dL 70-105 2345-7) Calcium (test code = 8.5 mg/dL 8.4-10.2 00827-4) EGFR (test code = 102 mL/min/1.73 [place] [address]-6) ACCURATE CREATININE CALLUM ADILENE IN PREDICTING GLOMERULAR FILT RATION RATE. ESTIMATED GFR IS NOT APPLICAB LE FOR DIALYSIS PATIEN TS. [facility] 06:04:00 Test Item Value Reference Range Interpretation Comments Magnesium (test code = 1.5 mg/dL 1.6-2.6 L 26496-4) NACHO (test code = NACHO) Raw Material Planner ID - LISBETH L Lab Interpretation (test Abnormal code = 94126-5) [facility] Center[facility]osph[facility] 06:04:00 Test Item Value Reference Range Interpretation Comments Phosphorus (test code = 3.0 mg/dL 2.3-4.7 2777-1) NACHO (test code = NACHO) Raw Material Planner ID - LISBETH L Lab Interpretation (test Normal code = 71548-6) [facility]OS[facility]US2020-[facility]-05 06:04:00 Test Item Value Reference Range Interpretation Comments PHOSPHORUS (BEAKER) (test code = 3.0 mg/dL 2.3-4.7 604) Raw Material Planner ID - LISBETH [id number] 06:04:00 Test Item Value Reference Range Interpretation Comments MAGNESIUM (BEAKER) (test code = 1.5 mg/dL 1.6-2.6 L 627) Raw Material Planner ID - LISBETH LBASIC METABOLIC [id number] 06:04:00 Test Item Value Reference Range Interpretation Comments SODIUM (BEAKER) 141 meq/L 136-145 (test code = 381) POTASSIUM (BEAKER) 3.9 meq/L 3.5-5.1 (test code = 379) CHLORIDE (BEAKER) 105 meq/L 98-107 (test code = 382) CO2 (BEAKER) (test 26 meq/L 22-29 code = 355) BLOOD UREA NITROGEN 8 mg/dL 7-21 (BEAKER) (test code = 354) CREATININE (BEAKER) 0.90 mg/dL 0.57-1.25 (test code = 358) GLUCOSE RANDOM 79 mg/dL 70-105 (BEAKER) (test code = 652) CALCIUM (BEAKER) 8.5 mg/dL 8.4-10.2 (test code = 697) EGFR (BEAKER) (test 102 mL/min/1.73 ESTIM ATED GFR IS code = 1092) sq m NOT ACCURATE CREATININE CLEARANCE IN PREDICTING GLOMERULAR FILTRATION RATE . ESTIMATED GFR I S NOT APPLICABLE FOR DIALYSIS PATIEN TS. Prothrombin time/[id number] 05:44:00 Test Item Value Reference Range Interpretation Comments Protime (test code = 15.9 11.9- 14.2 H 5902-2) seconds INR (test code = 1.3 <=5.9 6301-6) NACHO (test code = NACHO) Effective 11/02/2018: PT Reference Range ChangeNew: 11.9-14.2 Previous: 11.7-14.7 RECOMMENDED COUMADIN/WARFARIN INR THERAPY RANGESSTANDARD DOSE: 2.0-3.0 Includes: PROPHYLAXIS for venous thrombosis, systemic embolization; TREATMENT for venous thrombosis and/or pulmonary embolus.HIGH RISK: Target INR is 2.5-3.5 for patients wiht mechanical heart valves. Lab Interpretation Abnormal (test code = 98423-3) [facility] 05:44:00 Test Item Value Reference Range Interpretation Comments PTT (test code = 60980-9) 47.6 22.5- 36.0 seconds H Lab Interpretation (test code = Abnormal 53750-9) [facility] CenterPROTHROMBIN TIME/[id number] 05:44:00 Test Item Value Reference Range Interpretation Comments PROTIME (BEAKER) (test code = 15.9 seconds 11.9-14.2 H 759) INR (BEAKER) (test code = 370) 1.3 <=5.9 Effective 11/02/2018: PT Reference Range ChangeNew: 11.9-14.2 Previous: 11.7- 14.7RECOMMENDED COUMADIN/WARFARIN INR THERAPY RANGESSTANDARD DOSE: 2.0-3.0 Includes: PROPHYLAXIS for venous thrombosis, systemic embolization; TREATMENT for venous thrombosis and/or pulmonary embolus.HIGH RISK: Target INR is2.5-3.5 for patients wiht mechanical heart valves.[id number] 05:44:00 Test Item Value Reference Range Interpretation Comments PARTIAL THROMBOPLASTIN TIME 47.6 seconds 22.5-36.0 H (BEAKER) (test code = 760) PROTHROMBIN TIME/[id number] 05:43:00 Test Item Value Reference Range Interpretation Comments PROTIME (BEAKER) (test code = 15.8 seconds 11.9-14.2 H 759) INR (BEAKER) (test code = 370) 1.3 <=5.9 Effective 11/02/2018: PT Reference Range ChangeNew: 11.9-14.2 Previous: 11.7- 14.7RECOMMENDED COUMADIN/WARFARIN INR THERAPY RANGESSTANDARD DOSE: 2.0-3.0 Includes: PROPHYLAXIS for venous thrombosis, systemic embolization; TREATMENT for venous thrombosis and/or pulmonary embolus.HIGH RISK: Target INR is2.5-3.5 for patients wiht mechanical heart valves.HEPATIC FUNCTION [id number] 05:53:00 Test Item Value Reference Range Interpretation Comments TOTAL PROTEIN (BEAKER) (test code = 6.9 gm/dL 6.0-8.3 770) ALBUMIN (BEAKER) (test code = 1145) 2.9 g/dL 3.5-5.0 L BILIRUBIN TOTAL (BEAKER) (test code 1.0 mg/dL 0.2-1.2 = 377) BILIRUBIN DIRECT (BEAKER) (test 0.6 mg/dL 0.1-0.5 H code = 706) ALKALINE PHOSPHATASE (BEAKER) (test 73 U/L 40-150 code = 346) AST (SGOT) (BEAKER) (test code = 13 U/L 5-34 353) ALT (SGPT) (BEAKER) (test code = < U/L 6-55 L 347) Raw Material Planner ID - [id number] 05:51:00 Test Item Value Reference Range Interpretation Comments PHOSPHORUS (BEAKER) (test code = 3.3 mg/dL 2.3-4.7 604) Raw Material Planner ID - [id number] 05:51:00 Test Item Value Reference Range Interpretation Comments MAGNESIUM (BEAKER) (test code = 1.7 mg/dL 1.6-2.6 627) Raw Material Planner ID - BSBASIC METABOLIC [id number] 05:51:00 Test Item Value Reference Range Interpretation Comments SODIUM (BEAKER) 138 meq/L 136-145 (test code = 381) POTASSIUM (BEAKER) 3.9 meq/L 3.5-5.1 (test code = 379) CHLORIDE (BEAKER) 106 meq/L 98-107 (test code = 382) CO2 (BEAKER) (test 22 meq/L 22-29 code = 355) BLOOD UREA NITROGEN 9 mg/dL 7-21 (BEAKER) (test code = 354) CREATININE (BEAKER) 0.90 mg/dL 0.57-1.25 (test code = 358) GLUCOSE RANDOM 65 mg/dL 70-105 L (BEAKER) (test code = 652) CALCIUM (BEAKER) 8.3 mg/dL 8.4-10.2 L (test code = 697) EGFR (BEAKER) (test 102 mL/min/1.73 ESTIM ATED GFR IS code = 1092) sq m NOT ACCURATE CREATININE CLEARANCE IN PREDICTING GLOMERULAR FILTRATION RATE . ESTIMATED GFR I S NOT APPLICABLE FOR DIALYSIS PATIEN TS. Raw Material Planner ID - BSPROTHROMBIN TIME/[id number] 05:19:00 Test Item Value Reference Range Interpretation Comments PROTIME (BEAKER) (test code = 16.4 seconds 11.9-14.2 H 759) INR (BEAKER) (test code = 370) 1.4 <=5.9 Effective 11/02/2018: PT Reference Range ChangeNew: 11.9-14.2 Previous: 11.7- 14.7RECOMMENDED COUMADIN/WARFARIN INR THERAPY RANGESSTANDARD DOSE: 2.0-3.0 Includes: PROPHYLAXIS for venous thrombosis, systemic embolization; TREATMENT for venous thrombosis and/or pulmonary embolus.HIGH RISK: Target INR is2.5-3.5 for patients wiht mechanical heart valves.CBC W/PLT COUNT & AUTO [id number] 04:53:00 Test Item Value Reference Range Interpretation Comments WHITE BLOOD CELL COUNT (BEAKER) 16.0 K/ L 3.5-10.5 H (test code = 775) RED BLOOD CELL COUNT (BEAKER) 4.00 M/ L 4.63-6.08 L (test code = 761) HEMOGLOBIN (BEAKER) (test code = 10.9 GM/DL 13.7-17.5 L 410) HEMATOCRIT (BEAKER) (test code = 36.6 % 40.1-51.0 L 411) MEAN CORPUSCULAR VOLUME (BEAKER) 91.5 fL 79.0-92.2 (test code = 753) MEAN CORPUSCULAR HEMOGLOBIN 27.3 pg 25.7-32.2 (BEAKER) (test code = 751) MEAN CORPUSCULAR HEMOGLOBIN CONC 29.8 GM/DL 32.3-36.5 L (BEAKER) (test code = 752) RED CELL DISTRIBUTION WIDTH 14.8 % 11.6-14.4 H (BEAKER) (test code = 412) PLATELET COUNT (BEAKER) (test 1059 K/CU MM 150-450 H code = 756) MEAN PLATELET VOLUME (BEAKER) 9.4 fL 9.4-12.4 (test code = 754) NUCLEATED RED BLOOD CELLS 0 /100 WBC 0-0 (BEAKER) (test code = 413) NEUTROPHILS RELATIVE PERCENT 81 % (BEAKER) (test code = 429) LYMPHOCYTES RELATIVE PERCENT 9 % (BEAKER) (test code = 430) MONOCYTES RELATIVE PERCENT 6 % (BEAKER) (test code = 431) EOSINOPHILS RELATIVE PERCENT 3 % (BEAKER) (test code = 432) BASOPHILS RELATIVE PERCENT 1 % (BEAKER) (test code = 437) NEUTROPHILS ABSOLUTE COUNT 12.98 K/ L 1.78-5.38 H (BEAKER) (test code = 670) LYMPHOCYTES ABSOLUTE COUNT 1.35 K/ L 1.32-3.57 (BEAKER) (test code = 414) MONOCYTES ABSOLUTE COUNT 0.95 K/ L 0.30-0.82 H (BEAKER) (test code = 415) EOSINOPHILS ABSOLUTE COUNT 0.44 K/ L 0.04-0.54 (BEAKER) (test code = 416) BASOPHILS ABSOLUTE COUNT 0.17 K/ L 0.01-0.08 H (BEAKER) (test code = 417) IMMATURE GRANULOCYTES-RELATIVE 1 % 0-1 PERCENT (BEAKER) (test code = 2801) U/S, RENAL, [id number] 11:08:00Reason for exam:->hydroFINAL REPORT Technique: Grayscale and color doppler renal ultrasound was performed on 11/08/2019 Clinical History: [place]. Comparison Study: None. Findings: The right kidney measures 10.3 x 4.4 x 4.8 cm and left kidney measures 10.0 x 5.4 x 4.8 cm. There is mild right hydroureteronephrosis. There is no evidence of nephrolithiasis or renal mass on either side. The echogenicity is n ormal bilaterally. Color flow is documented to both kidneys. The bladder is decompressed by Murillo catheter. Impression: Mild right hydroureteronephrosis. Signed: Rosines, Krystal A. MDReport Verified Date/Time: 11/08/2019 11:08:21 Reading Location: [address] Radiology Reading Room Electronicallysigned by: KRYSTAL WAN MD on 11/08/2019 11:08 AMUS renal [id number] 11:08:00Interface, External Ris In - 11/08/2019 11:10 AM CDTFINAL REPORT Technique: Grayscale and color doppler renal ultrasound was performed on 11/08/2019 Clinical History: [place]. Comparison Study: None. Findings: The right kidney measures 10.3 x 4.4 x 4.8 cm and left kidney measures 10.0 x 5.4 x 4.8 cm. There is mild right hydroureteronephrosis. There is no evidence of nephrolithiasis or renal mass on either side. The echogenicity is normal bilaterally. Color flow is documented to both kidneys. The bladder is decompressed by Murillo catheter. Impression: Mild right hydroureteronephrosis. Signed: Krystal Wan MDReport Verified Date/Time: 11/08/2019 11:08:21 Reading Location: [address] Radiology Reading [facility] 07[facility]11:00 Test Item Value Reference Range Interpretation Comments PHOSPHORUS (BEAKER) (test code = 3.3 mg/dL 2.3-4.7 604) Raw Material Planner ID - GUILLE [id number] 07:11:00 Test Item Value Reference Range Interpretation Comments MAGNESIUM (BEAKER) (test code = 1.8 mg/dL 1.6-2.6 627) Raw Material Planner ID - GUILLE MBASIC METABOLIC [id number] 07:11:00 Test Item Value Reference Range Interpretation Comments SODIUM (BEAKER) 143 meq/L 136-145 (test code = 381) POTASSIUM (BEAKER) 4.4 meq/L 3.5-5.1 (test code = 379) CHLORIDE (BEAKER) 110 meq/L 98-107 H (test code = 382) CO2 (BEAKER) (test 25 meq/L 22-29 code = 355) BLOOD UREA NITROGEN 9 mg/dL 7-21 (BEAKER) (test code = 354) CREATININE (BEAKER) 0.85 mg/dL 0.57-1.25 (test code = 358) GLUCOSE RANDOM 70 mg/dL 70-105 (BEAKER) (test code = 652) CALCIUM (BEAKER) 8.5 mg/dL 8.4-10.2 (test code = 697) EGFR (BEAKER) (test 109 mL/min/1.73 ESTIM ATED GFR IS code = 1092) sq m NOT ACCURATE CREATININE CLEARANCE IN PREDICTING GLOMERULAR FILTRATION RATE . ESTIMATED GFR I S NOT APPLICABLE FOR DIALYSIS PATIEN TS. Raw Material Planner ID - GUILLE EPATIC FUNCTION [id number] 07:11:00 Test Item Value Reference Range Interpretation Comments TOTAL PROTEIN (BEAKER) (test code = 6.8 gm/dL 6.0-8.3 770) ALBUMIN (BEAKER) (test code = 1145) 3.0 g/dL 3.5-5.0 L BILIRUBIN TOTAL (BEAKER) (test code 1.0 mg/dL 0.2-1.2 = 377) BILIRUBIN DIRECT (BEAKER) (test 0.6 mg/dL 0.1-0.5 H code = 706) ALKALINE PHOSPHATASE (BEAKER) (test 76 U/L 40-150 code = 346) AST (SGOT) (BEAKER) (test code = 22 U/L 5-34 353) ALT (SGPT) (BEAKER) (test code = 8 U/L 6-55 347) Raw Material Planner ID - GUILLE MPROTHROMBIN TIME/[id number] 06:36:00 Test Item Value Reference Range Interpretation Comments PROTIME (BEAKER) (test code = 16.3 seconds 11.9-14.2 H 759) INR (BEAKER) (test code = 370) 1.4 <=5.9 Effective 11/02/2018: PT Reference Range ChangeNew: 11.9-14.2 Previous: 11.7- 14.7RECOMMENDED COUMADIN/WARFARIN INR THERAPY RANGESSTANDARD DOSE: 2.0-3.0 Includes: PROPHYLAXIS for venous thrombosis, systemic embolization; TREATMENT for venous thrombosis and/or pulmonary embolus.HIGH RISK: Target INR is2.5-3.5 for patients wiht mechanical heart valves.CBC W/PLT COUNT & AUTO [id number] 06:31:00 Test Item Value Reference Range Interpretation Comments WHITE BLOOD CELL COUNT (BEAKER) 15.0 K/ L 3.5-10.5 H (test code = 775) RED BLOOD CELL COUNT (BEAKER) 4.05 M/ L 4.63-6.08 L (test code = 761) HEMOGLOBIN (BEAKER) (test code = 10.9 GM/DL 13.7-17.5 L 410) HEMATOCRIT (BEAKER) (test code = 37.3 % 40.1-51.0 L 411) MEAN CORPUSCULAR VOLUME (BEAKER) 92.1 fL 79.0-92.2 (test code = 753) MEAN CORPUSCULAR HEMOGLOBIN 26.9 pg 25.7-32.2 (BEAKER) (test code = 751) MEAN CORPUSCULAR HEMOGLOBIN CONC 29.2 GM/DL 32.3-36.5 L (BEAKER) (test code = 752) RED CELL DISTRIBUTION WIDTH 14.9 % 11.6-14.4 H (BEAKER) (test code = 412) PLATELET COUNT (BEAKER) (test 1058 K/CU MM 150-450 H code = 756) MEAN PLATELET VOLUME (BEAKER) 9.5 fL 9.4-12.4 (test code = 754) NUCLEATED RED BLOOD CELLS 0 /100 WBC 0-0 (BEAKER) (test code = 413) NEUTROPHILS RELATIVE PERCENT 83 % (BEAKER) (test code = 429) LYMPHOCYTES RELATIVE PERCENT 9 % (BEAKER) (test code = 430) MONOCYTES RELATIVE PERCENT 5 % (BEAKER) (test code = 431) EOSINOPHILS RELATIVE PERCENT 1 % (BEAKER) (test code = 432) BASOPHILS RELATIVE PERCENT 1 % (BEAKER) (test code = 437) NEUTROPHILS ABSOLUTE COUNT 12.37 K/ L 1.78-5.38 H (BEAKER) (test code = 670) LYMPHOCYTES ABSOLUTE COUNT 1.41 K/ L 1.32-3.57 (BEAKER) (test code = 414) MONOCYTES ABSOLUTE COUNT 0.78 K/ L 0.30-0.82 (BEAKER) (test code = 415) EOSINOPHILS ABSOLUTE COUNT 0.21 K/ L 0.04-0.54 (BEAKER) (test code = 416) BASOPHILS ABSOLUTE COUNT 0.17 K/ L 0.01-0.08 H (BEAKER) (test code = 417) IMMATURE GRANULOCYTES-RELATIVE 0 % 0-1 PERCENT (BEAKER) (test code = 2801) Urinalysis w/Microscopic + Reflex to [id number] 05:36:00 Test Item Value Reference Range Interpretation Comments Color, UA (test code = Yellow 5778-6) Clarity, UA (test code Cloudy = 5767-9) Specific [place], UA 1.026 1.001-1.035 (test code = 5811-5) pH, UA (test code = 6.0 5.0-8.0 5803-2) Protein, UA (test code 30 mg/dL Negative A = 18745-9) Glucose, UA (test code Negative Negative = 365) Ketones, UA (test code 60 mg/dL Negative A = 2514-8) Bilirubin, UA (test Negative Negative code = 04224-2) Blood, UA (test code = Small Negative A 03380-4) Nitrite, UA (test code Negative Negative = 5802-4) Leukocytes, UA (test Large Negative A code = 5799-2) Urobilinogen, UA (test 2.0 mg/dL 0.2-1 H code = 07149-2) RBC, UA (test code = 12 /HPF 73409-6) WBC, UA (test code = 1751 /HPF Wbc clu mps seen 5821-4) Bacteria, UA (test Many code = 11131-2) Specimen Source (test code = 2795) NACHO (test code = NACHO) Raw Material Planner ID - [auto]Raw Material Planner ID - tech Lab Interpretation Abnormal (test code = 70089-2) [facility] [id number] 05:36:00 Test Item Value Reference Range Interpretation Comments COLOR (BEAKER) (test code = Yellow 470) CLARITY (BEAKER) (test code Cloudy = 469) SPECIFIC GRAVITY UA (BEAKER) 1.026 1.001-1.035 (test code = 468) PH UA (BEAKER) (test code = 6.0 5.0-8.0 467) PROTEIN UA (BEAKER) (test 30 mg/dL Negative A code = 464) GLUCOSE UA (BEAKER) (test Negative Negative code = 365) KETONES UA (BEAKER) (test 60 mg/dL Negative A code = 371) BILIRUBIN UA (BEAKER) (test Negative Negative code = 462) BLOOD UA (BEAKER) (test code Small Negative A = 461) NITRITE UA (BEAKER) (test Negative Negative code = 465) LEUKOCYTE ESTERASE UA Large Negative A (BEAKER) (test code = 466) UROBILINOGEN UA (BEAKER) 2.0 mg/dL 0.2-1.0 H (test code = 463) RBC UA (BEAKER) (test code = 12 /HPF 519) WBC UA (BEAKER) (test code = 1751 /HPF Wbc clumps seen 520) BACTERIA (BEAKER) (test code Many = 517) SOURCE(BEAKER) (test code = 2795) Raw Material Planner ID - [auto]Raw Material Planner ID - tech
[2020-04-16 09:52] LABS: Absolute Lymphocytes (CBC) 0.7 K/uL (0.7-4.9); Basophils % 0.7 % (0-1.3); Hematocrit 36.4 % (39.6-49.0); Lymphocytes % 1.7 % (15.3-44.8); MPV 8.3 fL (7.6-11.3); RBC Red Blood Cell Count 3.61 M/uL (4.33-5.43)
[2020-04-16 09:54] LABS: Protime INR 1.14
[2020-04-16] MEDS ORDERED: D50W 25 GM/50 ML SYRINGE IV ONE (10:01)
[2020-04-16] MEDS ORDERED: D5W 1,000 ML IV ONE ×2 (10:02→14:45)
[2020-04-16] MEDS ORDERED: NA CHLORIDE 0.9% 500 ML ONE ×3 (10:02→14:45)
[2020-04-16] MEDS ORDERED: CEFTRIAXONE/SWI 1gm 2 GM/20 ML SYR ONE (10:02)
[2020-04-16 10:17] LABS: Albumin 2.7 g/dL (3.4-5.0); Bilirubin Direct 2.4 mg/dL (0-0.2); Bilirubin Total 3.8 mg/dL (0.2-1.0); CKMB Creatine Kinase MB 1.9 ng/mL (0.3-3.6); Protein, Total 8.3 g/dL (6.4-8.2); Troponin (Emerg Dept Use Only) 0.02 ng/mL (0.0-0.045)
[2020-04-16 10:20] LABS: Potassium 2.9 mmol/L (3.5-5.1)
[2020-04-16] MEDS ORDERED: HEPARIN/D5W 25,000 UNIT/500 ML BAG IV ONE (10:25)
[2020-04-16] MEDS ORDERED: Meropenem 1 GM/100 ML BAG ONE (10:25)
[2020-04-16 10:26] LABS: Urine Blood 2+ (NEG); Urine Glucose NEGATIVE (NEG); Urine Protein 3+ (NEG); Urine pH 7.5 (5.0-7.0)
[2020-04-16 10:29] LABS: Urine Bacteria >50 /HPF (NONE SEEN)
[2020-04-16 10:30] LABS: Urine Culture Reflex Order REFLEXED; Urine Mucus LIGHT /HPF (NONE SEEN); Urine RBC 20-50 /HPF (NONE SEEN)
[2020-04-16 10:36] LABS: Platelet Estimate INCR; Platelets, Giant FEW
[2020-04-16 10:37] LABS: Blood Morphology Comment NOT SEEN (NOT SEEN)
[2020-04-16] MEDS ORDERED: KCL 20 MEQ/100 mL IVPB 20 MEQ/100 ML BAG IV ONE (10:37)
[2020-04-16] MEDS ORDERED: SOD BICARB 8.4% PEDI 10 mEq/10 mL SYR IVP ONE (10:37)
--- NOTE | 2020-04-16 10:53 | RAD REPORT ---
EXAM DESCRIPTION: RAD - Chest Single View - 04/16/2020 10:10 am CLINICAL HISTORY: tachycardia Chest pain. COMPARISON: Chest Single View dated 11/07/2019; Chest Single View dated 09/12/2016; Chest Single View da joel 09/09/2016; Chest Single View dated 02/25/2016 FINDINGS: Portable technique limits examination quality. Left hemithorax opacification is present with volume loss, chronic. The right lung is emphysematous b ut clear. The heart is normal in size.
--- NOTE | 2020-04-16 11:00 | RAD REPORT ---
EXAM DESCRIPTION: CT - Head Brain Wo Cont - 04/16/2020 10:51 am CLINICAL HISTORY: DECLINING STATE Headache, drowsiness COMPARISON: No comparisons TECHNIQUE: All CT scans are performed using dose optimization technique as appropriate and may inclu de automated exposure control or mA/KV adjustment according to patient size. FINDINGS: No intracranial hemorrhage, hydrocephalus or extra-axial fluid collection.No areas of brai n edema or evidence of midline shift. The paranasal sinuses and mastoids are clear. The calvarium is intact. IMPRESSION: No acute intracranial abnormality.
--- NOTE | 2020-04-16 11:18 | RAD REPORT ---
EXAM DESCRIPTION: CT - Chest Abdomen Pelvis W Cont - 04/16/2020 10:51 am CLINICAL HISTORY: Chest and abdomen pain. ca COMPARISON: Chest Abdomen Pelvis W Cont dated 11/07/2019; Ct Skull/Thigh dated 04/11/2020 TECHNIQUE: Approximately 100 mL nonionic IV contrast was administered to the patient. All CT scans are performed using dose optimization technique as appropriate and may include automated exposure control or mA/KV adjustment according to patient size. FINDINGS: Very large malignant mass is present left upper lobe measuring 10 x 9 cm and with evidence of mediastinal invasion. There is atelectasis of the left lung with a small amount of left pleural f luid. The right lung is emphysematous. 10 mm right sided peritracheal stripe lymph node suspected. No acute aortic finding or evidence of pulmonary embolism. Numerous low-density hepatic lesions are present, similar to the comparative study. These could repre sent cysts, biliary hamartomas or metastasis. Spleen, pancreas are within normal limits. Mild thicken ing of the adrenal glands seen. Moderate right hydronephrosis and hydroureter is present. Prominent retention of stool in the rectosigmoid colon is seen. Massive right-sided inguinal hernia a gain noted. The prostate gland is very enlarged and extends into the urinary bladder. IMPRESSION: Very large left apical lung malignancy with evidence of mediastinal invasion. Atelectasis of the left lung with a small left pleural effusion. Hepatic hypodensities are present without gross interval change since comparative study. Moderate right hydronephrosis and hydroureter, unchanged. Massive right inguinal hernia. Significant prostatomegaly.
[2020-04-16] MEDS ORDERED: SODIUM BICARB 50 MEQ/50ML VIAL ONE (11:25)
[2020-04-16] MEDS ORDERED: PROMETHAZINE INJ 25 MG/ML AMP ONE (13:22)
[2020-04-16 13:26] LABS: Potassium 3.2 mmol/L (3.5-5.1)
[2020-04-16] MEDS ORDERED: NOREPINEPHRINE 4mg/D5W 250mL 4 MG/250 ML BAG IV ONE (14:44)
--- NOTE | 2020-04-16 14:53 | ER ---
Nurse's Notes [facility] Name: Surya Penn Age: 69 yrs Sex: Male : 1950 Arrival Date: 04/16/2020 Time: 09:16 Bed 14 Private MD: Diagnosis: Sepsis, unspecified organism;Urinary tract infection, site not specified;Thrombocytosis, Leukocytosis;Lung Mass;Inguinal hernia Presentation: 04/16 09:17 Chief complaint: EMS states: pt from [facility], c/o abdominal pain + distention, tw2 has contreras catheter in place with minimal output noted today, pt has extensive medical hx: b/l amputee, stage 4 lung cancer, irregular heart rhythm. Coronavirus screen: At this time, the client does not indicate any symptoms associated with coronavirus-19. Ebola Screen: Patient denies travel to an Ebola-affected area in the 21 days before illness onset. Initial Sepsis Screen: Does the patient meet any 2 criteria? RR > 20 per min. HR > 90 bpm. Does the patient have a suspected source of infection? Yes: Catheter related infection (Contreras/dialysis/PICC/central line). Risk Assessment: Do you want to hurt yourself or someone else? Patient reports no desire to harm self or others. Onset of symptoms was April 16, 2020. 09:17 Method Of Arrival: Ambulatory tw2 09:17 Acuity: MEGGAN 2 tw2 Triage Assessment: 09:21 General: Appears in no apparent distress. Behavior is calm, cooperative, appropriate tw2 for age. Pain: Complains of pain in abdomen. GI: Abdomen is distended, Reports lower abdominal pain, upper abdominal pain. Musculoskeletal: Amputation of b/l bka. Historical: - Allergies: 09:30 No Known Allergies; aa5 - Home Meds: 09:30 donepezil 10 mg oral tab 1 tab once daily [Active]; aspirin 81 mg Oral chew 1 tab once aa5 daily [Active]; docusate sodium 100 mg Oral cap once daily [Active]; finasteride 5 mg oral tab 1 tab once daily [Active]; Flomax 0.4 mg Oral cp24 1 cap once daily [Active]; folic acid 1 mg Oral tab 1 tab once daily [Active]; ipratropium-albuterol inhalation Inhl every 6 hours [Active]; metoprolol tartrate 25 mg Oral tab 1 tab 2 times per day [Active]; multivitamin with minerals oral tab daily [Active]; Namenda 10 mg oral tab 1 tab 2 times per day [Active]; omeprazole 20 mg Oral cpDR once daily [Active]; Remeron 30 mg Oral tab 1 tab once daily [Active]; senna 8.6 mg oral cap once daily [Active]; acetaminophen 325 mg oral tab every 8 hours [Active]; - PMHx: 09:30 Hypertension; Benign prostatic hyperplasia; Depression; sepsis; Aphasia; Dysphagia; aa5 Nutritional anemia; Acute Kidney Failure; Dementia; ESBL; GERD; Schizophrenia; Thrombocythemia; Traumatic ezekiel leg amputation; UTI; Malignant neoplasm of middle lobe-Lung; Intracranial and intraspinal abscess and granuloma; PVD; Hernia; - Immunization history:: Adult Immunizations unknown. - Social history:: Smoking status: . Screenin:26 Abuse screen: Denies threats or abuse. Nutritional screening: No deficits noted. tw2 Tuberculosis screening: No symptoms or risk factors identified. Fall Risk Secondary diagnosis (15 points) impaired mobility. Assessment: 09:17 Reassessment: provider at bedside at this time. tw2 09:21 General: Appears in no apparent distress. Behavior is cooperative, appropriate for age, tw2 anxious. Pain: Complains of pain in abdomen and scrotal swelling. Neuro: Level of Consciousness is awake, alert, obeys commands, Oriented to person, place. Cardiovascular: Heart tones S1 S2 Patient's skin is warm and dry. Respiratory: Airway is patent Respiratory effort is even, unlabored, Respiratory pattern is regular, tachypnea. GI: Abdomen is round distended, Bowel sounds present X 4 quads. Abd is rigid. : pt arrived with old contreras catheter in place, discontinued at this time per provider JOSE Hills. EENT: No signs and/or symptoms were reported regarding the EENT system. Derm: Skin is dry, Skin temperature is warm. Musculoskeletal: Amputation of b/l bka. 10:25 Reassessment: Patient appears in no apparent distress at this time. No changes from tw2 previously documented assessment. Patient and/or family updated on plan of care and expected duration. Pain level reassessed. 10:50 Reassessment: I transported pt to CT via stretcher on monitor with Jaelyn Patel and tw2 JENNA Kaye tech with iv pump for medication infusing. 11:10 Reassessment: pt back from CT at this time. tw2 11:22 Reassessment: Patient appears in no apparent distress at this time. No changes from tw2 previously documented assessment. Patient and/or family updated on plan of care and expected duration. Pain level reassessed. 12:12 Reassessment: US at bedside at this time. tw2 12:13 Reassessment: Patient appears in no apparent distress at this time. No changes from tw2 previously documented assessment. Patient and/or family updated on plan of care and expected duration. Pain level reassessed. 12:41 Reassessment: Patient appears in no apparent distress at this time. No changes from tw2 previously documented assessment. Patient and/or family updated on plan of care and expected duration. Pain level reassessed. 13:03 Reassessment: Patient appears in no apparent distress at this time. No changes from tw2 previously documented assessment. Patient and/or family updated on plan of care and expected duration. Pain level reassessed. 13:10 Reassessment: pt c/o nauseousness at this time. provider notified, medicated as ordered.tw2 14:10 Reassessment: Patient appears in no apparent distress at this time. No changes from tw2 previously documented assessment. Patient and/or family updated on plan of care and expected duration. Pain level reassessed. 15:00 Reassessment: Patient appears in no apparent distress at this time. No changes from tw2 previously documented assessment. Patient and/or family updated on plan of care and expected duration. Pain level reassessed. 15:10 Reassessment: EMS here for transport. tw2 Vital Signs: 09:17 BP 108 / 89; Pulse 140; Resp 24; Temp 97.8(O); Pulse Ox 99% on R/A; Weight 38.56 kg tw2 (R); Pain 0/10; 10:00 BP 105 / 67; Pulse 120; Resp 24; Pulse Ox 97% on R/A; tw2 10:08 BP 95 / 70; Pulse 115; Resp 30; Temp 97.5(TE); Pulse Ox 97% on R/A; mh5 10:10 BP 99 / 67; Pulse 107; Resp 24; Pulse Ox 99% on R/A; tw2 10:20 BP 98 / 69; Pulse 116; Resp 29; Pulse Ox 98% on R/A; tw2 10:40 BP 95 / 68; Pulse 113; Resp 24; Pulse Ox 97% on R/A; tw2 10:55 BP 105 / 73; Pulse 107; Resp 24; Pulse Ox 97% on R/A; tw2 11:10 BP 87 / 68; Pulse 108; Resp 24; Temp 98.0(O); Pulse Ox 96% on R/A; tw2 11:30 BP 86 / 64; Pulse 107; Resp 22; Pulse Ox 99% on R/A; tw2 11:50 BP 73 / 63; Pulse 113; Resp 22; Pulse Ox 100% on R/A; tw2 11:58 BP 76 / 65; Pulse 117; Resp 22; Pulse Ox 99% on R/A; tw2 12:13 BP 78 / 64; Pulse 115; Resp 26; Pulse Ox 100% on R/A; tw2 12:18 BP 85 / 65; Pulse 114; Resp 24; Pulse Ox 98% on R/A; tw2 12:30 BP 82 / 63; Pulse 112; Resp 28; Pulse Ox 98% on R/A; tw2 12:41 BP 85 / 68; Pulse 111; Resp 24; Pulse Ox 100% on R/A; tw2 13:00 BP 76 / 63; Pulse 113; Resp 22; Pulse Ox 100% on R/A; tw2 13:14 BP 76 / 62; Pulse 162; tw2 13:17 BP 76 / 62; Pulse 115; Resp 22; Pulse Ox 98% on R/A; tw2 13:40 BP 86 / 66; Pulse 102; Resp 18; Pulse Ox 99% on R/A; tw2 14:00 BP 89 / 61; Pulse 102; Resp 8; Pulse Ox 100% on R/A; tw2 14:15 BP 90 / 72; Pulse 113; Resp 26; Temp 97.6(TE); Pulse Ox 98% on R/A; mh5 14:30 BP 87 / 72; Pulse 108; Resp 22; Pulse Ox 99% on R/A; tw2 14:45 BP 85 / 65; Pulse 105; Resp 18; Pulse Ox 97% on R/A; tw2 15:00 BP 91 / 60; Pulse 105; Resp 18; Pulse Ox 99% on R/A; tw2 15:10 BP 88 / 64; Pulse 102; Resp 18; Pulse Ox 96% on R/A; tw2 11:58 run of Vtach noted on monitor, JOSE Hills notified and at bedside at this time. tw2 13:14 provider notified and ns bolus ordered, tw2 ED Course: 09:16 Patient arrived in ED. tw2 09:18 Patient has correct armband on for positive identification. Placed in gown. Bed in low mh5 position. Call light in reach. Side rails up X 1. Side rails up X2. Warm blanket given. desk monitor on. Pulse ox on. NIBP on. 09:21 Triage completed. tw2 09:21 Arm band placed on. tw2 09:22 Lizzy De Leon RN is Primary Nurse. tw2 09:22 Missed attempt(s): 20 gauge in right antecubital area. Bleeding controlled, band aid tw2 applied, catheter tip intact. Inserted saline lock: 20 gauge in right forearm, using aseptic technique. ,using aseptic technique. MERLYN Caldwell Blood collected. Inserted saline lock: 20 gauge in left forearm, using aseptic technique. ,using aseptic technique. per JOSE Hills Blood collected. 09:22 First set of blood cultures drawn by md, Second set of blood cultures drawn at separate tw2 site. 09:30 Contreras cath inserted, using sterile technique, 16 Fr., by ED staff, balloon inflated, to tw2 gravity drainage, urine specimen collected. other by MERLYN Haney. 09:35 Jeana Kunz FNP-C [facility]. snw 09:35 Tonio Boyd MD is Attending Physician. sn 10:05 Glucose, Ancillary Testing Sent. 5 10:05 Urine Dipstick--Ancillary (enter results) Sent. 5 10:06 Urine Microscopic Only Sent. mh5 10:06 T\T\S Sent. mh5 10:06 T\T\S collected, blood band applied to patient. mh5 10:10 Chest Single View XRAY In Process Unspecified. EDMS 10:25 Inserted saline lock: 18 gauge in left antecubital area, using aseptic technique. aa5 10:49 CT completed. Patient tolerated procedure well. Patient moved to CT via stretcher. sj Patient moved back from CT. 10:51 CT Head Brain wo Cont In Process Unspecified. EDMS 10:51 Chest Abdomen Pelvis W Cont In Process Unspecified. EDMS 10:52 Radiology exam delayed due to u/s delayed pt going to CT first. aa4 11:32 Radiology exam delayed due to u/s delayed pt not ready. aa4 12:04 US Scrotum Testicles In Process Unspecified. EDMS 13:04 Repeat lab(s) drawn. by me, sent to lab. jp3 14:29 Report given to MERLYN Olivarez at [facility]. tw2 14:30 Assisted provider with central line placement. Set up central line tray. Triple lumen tw2 line placed in left subclavian. Line placed by Erik Johnson MD Placement verified by CXR, blood return, Jeana, [employer] HEL[employer] at bedside at this time Before procedure, did Practitioner(s) obtain informed consent? Yes. 14:42 Chest Single View XRAY In Process Unspecified. EDMS 15:26 Patient transferred, IV remains in place. tw2 Administered Medications: Discontinued: Heparin (DVT/PE Drip) 18 units/kg/hr - (HEParin 89075 units, D5W 500 ml) IV at calculated rate Per protocol; Max initial rate 1800 units/hr 09:25 Drug: NS 0.9% (30 ml/kg) 30 ml/kg Route: IV; Rate: bolus; Site: left forearm; tw2 10:50 Follow up: IV Status: Completed infusion; IV Intake: 1000ml tw2 09:49 Drug: D50W 50 ml Route: IVP; Site: right forearm; tw2 11:49 Follow up: Response: No adverse reaction; Blood sugar is elevated tw2 09:51 Drug: D5W 500 ml Route: IV; Rate: 200 ml/hr; Site: right forearm; tw2 15:23 Follow up: IV Status: Infusion continued upon transfer tw2 09:54 Drug: Rocephin 2 grams Route: IV; Rate: calculated rate; Site: left forearm; tw2 10:00 Follow up: Response: No adverse reaction; IV Status: Completed infusion tw2 10:06 Drug: NS 0.9% 1000 ml Route: IV; Rate: 80 ml/hr; Site: right forearm; tw2 15:25 Follow up: IV Status: Infusion continued upon transfer tw2 10:22 Drug: Meropenem 1 grams Route: IV; Rate: calculated rate; Site: left antecubital; tw2 11:10 Follow up: Response: No adverse reaction; IV Status: Completed infusion tw2 10:23 Drug: Heparin (DVT/PE Drip) 18 units/kg/hr - (HEParin 31332 units, D5W 500 ml) tw2 {Co-Signature: nadine (Paulette Dia RN).} Route: IV; Rate: calculated rate; Site: left forearm; 13:36 Follow up: IV Status: Order to discontinue infusion aa5 10:32 Drug: Potassium Chloride 20 mEq Route: IV; Rate: calculated rate; Site: right forearm; tw2 12:30 Follow up: Response: No adverse reaction; IV Status: Completed infusion tw2 11:15 Drug: Sodium Bicarbonate 1 amp {Note: per [employer] place in D5W bag currently infusing .} tw2 Route: IVP; Site: right forearm; 11:42 Follow up: Response: No adverse reaction tw2 13:10 Drug: Phenergan 12.5 mg Route: IVP; Site: left antecubital; tw2 13:30 Follow up: Response: No adverse reaction; Nausea is decreased tw2 13:14 Drug: NS 0.9% 500 ml Route: IV; Rate: bolus; Site: left antecubital; tw2 13:55 Follow up: Response: No adverse reaction; IV Status: Completed infusion; IV Intake: tw2 500ml 14:42 Drug: Levophed (4 mg/250 mL D5W 4 mcg/min Route: IV; Rate: calculated rate; Site: left tw2 antecubital; 14:44 Follow up: moved to LEFT subclavian central line, placement verified by JOSE Hills tw2 15:24 Follow up: IV Status: Infusion continued upon transfer tw2 Point of Care Testing: Blood Glucose: 09:48 Blood Glucose: 43 mg/dL; tw2 09:48 provider notified. tw2 Ranges: Intake: 10:50 IV: 1000ml; Total: 1000ml. tw2 13:55 IV: 500ml; Total: 1500ml. tw2 15:22 foul smelling when drained to urinal for disposal tw2 Output: 15:22 Urine: 500ml (Contreras); Total: 500ml. tw2 15:22 foul smelling when drained to urinal for disposal tw2 Outcome: 14:52 ER care complete, transfer ordered by MD. rosenberg 15:23 Transferred by ground EMS Note: [facility] ICU tw2 15:23 critical 15:23 Instructed on the need for transfer. 15:43 Patient left the ED. tw2 Addendum: 04/20/2020 14:25 Addendum: Culture Results: Positive urine culture. Results faxed to Dustin nurse at a [facility]. Signatures: Dispatcher [employer] EDMS Jeana Kunz, [employer] HELPER-C [employer] HELPER-CsnMarlene Stearns Amanda aa4 Paulette Dia, RN RN aa5 Lizzy De Leon RN RN 2 Josephine Mendoza 5 Kory Hampton 3 Paulette Dia RN aa5 Corrections: (The following items were deleted from the chart) 04/16 12:03 11:54 CORONAVIRUS+ drawn and sent. tw2 EDMS 14:23 09:17 Chief complaint: EMS states: pt from [facility], c/o abdominal pain + tw2 distention, has contreras catheter in place with minimal output noted today, pt has extensive medical hx: b/l amputee, stage 4 lunch cancer, irregular heart rhythm tw2 15:23 15:10 Reassessment: ems here for transport tw2 tw2
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
--- NOTE | 2020-04-16 15:18 | RAD REPORT ---
EXAM DESCRIPTION: Yousuft Single View04/16/2020 2:42 pm CLINICAL HISTORY: Device placement/central venous catheter placement FINDINGS: Tip of a central venous catheter lies within the superior vena cava. A pneumothorax is not present.
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
--- NOTE | 2020-04-16 15:37 | P.OP ---
Preoperative diagnosis: Lack of vascular access Postoperative diagnosis: The same Primary procedure: Insertion of left subclavian catheter Anesthesia: Local Estimated blood loss: Less than 10 cc Specimen: 9 sent Operative Technique: With the patient on the gurney in the emergency room, a roll was placed between the patient's shoulders. He was then placed in Trendelenburg position. His head was turned towards the right-sided gentle traction applied to the left arm. The area of the left chest was now prepped with a Betadine solution. Having done a surgical time-out, the area was infiltrated with 1% lidocaine. A finer needle was used to cannulate the left subclavian vein. Having got back good venous blood return, the guidewire was passed down through the needle hub. The needle was then removed leaving the guidewire in place stab wound incision was made with an 11 blade at the entry point of the wire to the skin. The dilator was gently passed over the guidewire to dilate up the subcutaneous tract. The catheter was now placed using a modified Seldinger technique. The catheter was then flushed with normal saline, and anchored in place using subclavian line stabilization set. A sterile dressing was applied. At the end of procedure he was stable and a chest x-ray is pending. Complications: None Condition: Good
[2020-04-16 16:27] VITALS: TEMP 97.6
[2020-04-16 16:31] VITALS: BP 88/64; O2SAT 96
--- NOTE | 2020-04-16 16:36 | RAD REPORT ---
EXAM DESCRIPTION: US - Scrotum Testicles - 04/16/2020 12:03 pm CLINICAL HISTORY: Testicular pain COMPARISON: None FINDINGS: Very large right inguinal hernia Right testicle measures 2.3 x 1.1 x 1.6 centimeters. Echotexture is homogeneous. Normal blood flow Left testicle and left epididymis were not visualized . Right epididymis normal size and echotexture. Normal blood flow IMPRESSION: Very large right inguinal hernia
--- NOTE | 2020-04-17 18:07 | EKG ---
Test Date: 2020-04-16 Test Time: 09:20:48 Family Practice Nurse Practitioner: JESÚS MEASUREMENT RESULTS: Intervals: Rate: 134 ID: [id number] QRSD: 112 QT: 296 QTc: 442 Ferdinand: P: 43 ID: [id number] QRS: -57 T: 108 INTERPRETIVE STATEMENTS: Sinus tachycardia Left axis deviation Inferior infarct, age undetermined Anterior infarct, age undetermined ST & T wave abnormality, consider lateral ischemia Abnormal ECG Compared to ECG 09/09/2016 11:59:58 Myocardial infarct finding now present Possible ischemia now present Intraventricular conduction delay no longer present ST (T wave) deviation still present Electronically Signed On 04-17-20 18:02:53 DIRECTOR ALUMNI RELATIONS by Maikol Mosquera
== END 2020-04-16 15:43 ==
LOC: ER 09:14
PROC: 05H633Z Insertion of Infusion Device into Left Subclavian Vein, Percutaneous Approach (ICD-10-PCS; principal; 2020-04-16)
DX: A41.9 Sepsis, unspecified organism (principal); N39.0 Urinary tract infection, site not specified; D47.3 Essential (hemorrhagic) thrombocythemia; D72.829 Elevated white blood cell count, unspecified; K40.90 Unilateral inguinal hernia, without obstruction or gangrene, not specified as recurrent; C34.90 Malignant neoplasm of unspecified part of unspecified bronchus or lung; I10 Essential (primary) hypertension; N40.0 Benign prostatic hyperplasia without lower urinary tract symptoms; N17.9 Acute kidney failure, unspecified; F20.9 Schizophrenia, unspecified; F03.90 Unspecified dementia, unspecified severity, without behavioral disturbance, psychotic disturbance, mood disturbance, and anxiety; Z20.828 Contact with and (suspected) exposure to other viral communicable diseases; Z79.82 Long term (current) use of aspirin; Z89.511 Acquired absence of right leg below knee; Z89.512 Acquired absence of left leg below knee
CPT/HCPCS: 93005; 87040 ×2; 87088; 85025; 87086; 80048 ×2; 36415; 82150; 86900; 86850; 82550; 85610; 86901; 82947 ×3; 80076; 83605 ×2; 85730; 87077 ×2; 87186 ×2; 84484; 82553; 83690; 84145; 86140; 70450; 71260; 74177; 71045 ×2; 76870; 51702; 99285; 36556; U0003; Q9967; J2550; J3480; J0696; J2185; J7040 ×3; J7030; J1644; 81003; 81015